=== PATIENT | female | born 1995 | race Caucasian/White ===

== ENCOUNTER → 2017-11-08 21:14 | Observation (INO) ==
[2017-11-08 19:47] VITALS: BP 106/62
[2017-11-08 19:51] LABS: Bilirubin,Urine Negative (Negative); Blood,Urine Negative (Negative); Clarity,Urine Cloudy (Clear); Color,Urine Yellow (Yellow); Glucose,Urine (UA) Normal (Normal); Ketones,Urine Negative (Negative); Leukocyte Esterase,Urine Small (Negative); Nitrite,Urine Negative (Negative); PH,Urine 6.5 pH Units (5.0-8.0); Protein,Urine Negative (Neg-Trace); Specific Gravity,Urine 1.019 (1.010-1.025); Urobilinogen,Urine Normal (Normal)
[2017-11-08 19:52] LABS: Bacteria,Urine Few per hpf (None-Few); Hyaline Casts,Urine None Seen per lpf (None-Few); RBC,Urine 0-3 per hpf (0-3); Squamous Epithelial Cell,Urine Many per lpf (None-Few)
--- NOTE | 2017-11-08 20:07 | OB/GYN Progress Note ---
Date of Encounter: 11/08/17 Time of Encounter: 20:02 - Assessment and Plan (1) Uterine contractions during Current Visit: Yes Status: Acute NST - reactive Urinalysis - negative UDS - Negative No change with serial cervical exams. Discussed increased water intake, intercourse and increased contractions, pancho benavides contractions that increase with each , common discomforts of . Follow up in office with routine care and PRN. (2) 31 weeks gestation of Current Visit: Yes Status: Acute Subjective - Subjective Principal diagnosis: irregular contractions Interval history: Ms Sorensen is a at 31 weeks and 1 days gestation that arrives to labor and delivery triage with c/o irregular contractions with back pain, and loss of mucous plug one week ago. She states that she has had intercourse in the past 24 hours. She also states that she does not drink much water. She c/o muscle cramps in her legs and bottom daily. She denies any headaches, vision changes, epigastric pain, leaking of fluid, vaginal discharge, and vaginal bleeding. She states she delivered at 37 weeks with her last and also had to have medication once in her previous to stop labor. Antepartum ROS: movement normal, contractions, no loss of fluid, no vaginal bleeding Objective - Vital Signs Vital Signs: Vital Signs Pulse Resp BP 11/08/17 19:46 84 15 106/62 Intake and Output 11/08/17 11/08/17 11/08/17 07:59 15:59 23:59 Other: Weight 81 kg Patient Weight 11/08/17 23:59 Weight 81 kg - Exam FHR: auscultation normal, category 1 FHR comments: 140's with moderate variability and 15 x 15 accels and no decels. uterine irritability noted on monitor; uterus palpates soft. Auscultation: bilateral: normal Abdomen: Present: normal appearance, soft, gravid. Absent: rigidity, tenderness Uterus: Present: normal, firm Cervical dilation: 1 Cervix effacement: Thick station: Presenting part not palpable
[2017-11-08 20:08] LABS: Amphetamine Screen,Urine Negative ng/mL (Cutoff=1000); Barbiturate Screen,Urine Negative ng/mL (Cutoff=200); Benzodiazepines Screen,Urine Negative ng/mL (Cutoff=200); Cannabinoid Screen,Urine Negative ng/mL (Cutoff = 50); Cocaine Screen,Urine Negative ng/mL (Cutoff= 300); Opiate Screen,Urine Negative ng/mL (Cutoff=300); Phencyclidine Screen,Urine Negative ng/mL (Cutoff=25)
== END | disposition home or self-care (01) ==
LOC: 1NENULAB
PROVIDERS: ADMIT Advanced Practice Midwife; ATTEND Advanced Practice Midwife

== ENCOUNTER 2017-11-21 20:28 | Observation (INO) ==
[2017-11-21 21:06] LABS: Bilirubin,Urine Negative (Negative); Blood,Urine Negative (Negative); Clarity,Urine Cloudy (Clear); Color,Urine Yellow (Yellow); Glucose,Urine (UA) Normal (Normal); Ketones,Urine Trace mg/dL (Negative); Leukocyte Esterase,Urine Moderate (Negative); Nitrite,Urine Negative (Negative); Protein,Urine Negative (Neg-Trace); Specific Gravity,Urine 1.019 (1.010-1.025); Urobilinogen,Urine Normal (Normal)
[2017-11-21 21:09] LABS: Bacteria,Urine Moderate per hpf (None-Few); Hyaline Casts,Urine None Seen per lpf (None-Few); RBC,Urine 0-3 per hpf (0-3); Squamous Epithelial Cell,Urine Many per lpf (None-Few); WBC,Urine 30-50 per hpf (0-3)
[2017-11-21 21:13] LABS: Amphetamine Screen,Urine Negative ng/mL (Cutoff=1000); Barbiturate Screen,Urine Negative ng/mL (Cutoff=200); Benzodiazepines Screen,Urine Negative ng/mL (Cutoff=200); Cannabinoid Screen,Urine Negative ng/mL (Cutoff = 50); Cocaine Screen,Urine Negative ng/mL (Cutoff= 300); Opiate Screen,Urine Negative ng/mL (Cutoff=300); Phencyclidine Screen,Urine Negative ng/mL (Cutoff=25)
--- NOTE | 2017-11-26 11:41 | OB/GYN Progress Note ---
Date of Encounter: 11/21/17 Time of Encounter: 21:30 - Assessment and Plan (1) Back pain affecting in third trimester Status: Acute No contractions on toco. Pt with lower back pain. No CVAT per RN. Discharge home with precautions. (2) 33 weeks gestation of Status: Acute Subjective - Subjective Interval history: 22 year-old presenting at 33 weeks with c/o some lower back pain. She reports she thinks she may be getting sick with a virus or something but wants to be sure she isn't having contractions. She was seen and evaluated by medical staff specialist. Antepartum ROS: movement normal, no loss of fluid, no vaginal bleeding Objective - Exam FHR: category 1 FHR comments: NST reactive per RN Comments: Pt not having contractions on toco per RN - Labs Labs: Abnormal lab results Urine Clarity Cloudy (Clear) A 11/21/17 20:57 Urine Ketones Trace mg/dL (Negative) H 11/21/17 20:57 Ur Leukocyte Esterase Moderate (Negative) H 11/21/17 20:57 Urine Microscopic WBC 30-50 per hpf (0-3) H 11/21/17 20:57 Ur Squamous Epith Cells Many per lpf (None-Few) H 11/21/17 20:57 Urine Bacteria Moderate per hpf (None-Few) H 11/21/17 20:57
== END 2017-11-21 22:08 | disposition home or self-care (01) ==
LOC: 1NENULAB
PROVIDERS: ADMIT Obstetrics & Gynecology; ATTEND Obstetrics & Gynecology

== ENCOUNTER 2017-11-24 18:24 | Observation (INO) ==
[2017-11-24 19:15] LABS: Basophils % 0.4 %; Hematocrit 34.1 % (35.3-44.9); Immature Granulocytes % 1.2 % (0-4); Lymphocytes # 1.4 K/mcL (0.6-4.6); Lymphocytes % 12.9 %; Mean Corpuscular HGB Conc 35.2 g/dL (31.6-35.5); Mean Corpuscular Hemoglobin 29.8 pg (28.0-33.3); Mean Corpuscular Volume 84.6 fL (83.0-100.0); Mean Platelet Volume 10.2 fL (9.4-12.4); Monocytes # 0.7 K/mcL (0.0-1.3); Monocytes % 6.2 %; Neutrophils # 8.5 K/mcL (1.6-8.9); Nucleated Red Blood Cells 0.2 /100 WBC (0); Platelet Count 196 K/mcL (140-400); Red Blood Count 4.03 M/mcL (3.82-4.97); Red Cell Distribution Width 13.6 % (11.5-14.5); Segmented Neutrophils % 79.3 %
[2017-11-24 19:35] LABS: BUN/Creatinine Ratio 5 (6-26); Blood Urea Nitrogen 3 mg/dL (6-20); Calcium 8.1 mg/dL (8.6-10.3); Carbon Dioxide 21 mEq/L (23-29); Chloride 104 mEq/L (98-107); Glucose 85 mg/dL (70-105); Osmolality,Calculated 278 (280-300); Potassium 2.4 mEq/L (3.5-5.1); Sodium 136 mEq/L (136-145); eGFR For African Americans > 60 (> 60); eGFR For Non-African Americans > 60 (> 60)
[2017-11-24] MEDS ORDERED: Ondansetron 4 MG/2 ML VIAL IVP ONE (20:22)
[2017-11-24] MEDS ORDERED: 0.9 % Sodium Chloride 1,000 ML IVC ONE (20:22)
--- NOTE | 2017-11-24 20:33 | Emergency Department Note ---
Disposition Clinical Impression: Hypokalemia, Influenza UTI (urinary tract infection) Qualifiers: Urinary tract infection type: site unspecified Hematuria presence: without hematuria Qualified Code(s): N39.0 - Urinary tract infection, site not specified Qualifiers: Weeks of gestation: 33 weeks Qualified Code(s): Z3A.33 - 33 weeks gestation of Intractable nausea and vomiting Qualifiers: Vomiting type: unspecified Qualified Code(s): R11.2 - Nausea with vomiting, unspecified Disposition: Admitted As Inpatient Condition: Fair Time of Disposition: 22:06 Nausea/Vomiting/Diarrhea HPI - General Chief complaint: ED Nausea/Vomiting/Diarrhea Stated complaint: preg/needs fluids? Time Seen by Provider: 11/24/17 20:07 Source: patient Mode of arrival: ambulatory Limitations: no limitations Nursing Notes Reviewed: Yes Vital Signs Reviewed: Yes - History of Present Illness HPI Narrative: 22-year-old female at approximately 33 weeks present for evaluation of vomiting. Patient have a positive influenza swab obtained in the past couple days. Patient's been on Tamiflu. Patient is not having subjective fevers as well as URI symptoms. Patient states that she has been having an upset stomach and has had approximately 7 episodes of emesis earlier today. Not able to tolerate by mouth. Patient also noted some mild abdominal cramping. Denies any vaginal bleeding. Patient denying any chest pain or short of breath. Patient's denying any history of common locations with current . Does follow with [facility]. - Related Data Home Medications Medication Instructions Recorded Confirmed Ondansetron HCl [Zofran] 4 mg PO Q12H PRN 11/24/17 11/24/17 Oseltamivir [Tamiflu] 75 mg PO BID 11/24/17 11/24/17 Previous Rx's Medication Instructions Recorded Vit Calc,Iron,Folic 1 each PO DAILY #30 tablet 03/06/16 [ Vitamins] Allergies Allergy/AdvReac Type Severity Reaction Status Date / Time No Known Allergies Allergy Verified 11/21/17 20:56 All systems ED: reviewed and negative except as stated. Constitutional: Reports: as per HPI, fever Eyes: Reports: as per HPI ENT ED: Reports: as per HPI Cardiovascular: Reports: as per HPI Respiratory: Reports: as per HPI, cough. Denies: dyspnea Gastrointestinal: Reports: as per HPI, abdominal pain, nausea, vomiting Genitourinary: Reports: as per HPI Integumentary: Reports: as per HPI Neurological: Reports: as per HPI Psychiatric: Reports: as per HPI Endocrine: Reports: as per HPI Hematological/Lymphatic: Reports: as per HPI Allergic/Immunologic: Reports: as per HPI Past Medical History - Past Medical History Medical history: Reports: seizures Surgical history: Reports: no surgical history Psychiatric history: Reports: no psych history [facility] history: Reports: no [facility] history - Social History Smoking Status: Former smoker Smokeless Tobacco Status: No Alcohol use: Reports: none Drug use: Reports: none Physical Exam - General Limitations: no limitations General appearance: alert, in no apparent distress - Head Head exam: atraumatic, normocephalic, normal inspection - Eye Eye exam: Present: normal appearance, PERRL, EOMI - ENT ENT exam: normal exam, normal oropharynx, mucous membranes moist - Neck Neck exam: Present: normal inspection, trachea midline - Chest Chest inspection: Present: normal inspection, symmetric chest wall rise - Respiratory Respiratory exam: Present: normal lung sounds bilaterally. Absent: respiratory distress - Cardiovascular Cardiovascular exam: Present: regular rate - Abdominal Exam Abdominal exam: Present: soft, Non-Tender, other (Gravid uterus above the umbilicus). Absent: guarding, rebound - Extremities Exam Extremities exam: Present: normal inspection. Absent: pedal edema - Back Exam Back exam: Present: normal inspection, full ROM. Absent: tenderness - Neurological Exam Neurological exam: Present: alert, oriented X3 - Skin Skin exam: Present: warm, dry, intact, normal color Course Course Narrative: Patient seen and examined. Patient does have positive flu diagnosed 2 days prior. On Tamiflu. Patient had basic labs obtained from triage shows hypokalemia. She will get IV fluid hydration as well as intradural and parenteral replacement of potassium. Patient also get magnesium evaluated. Symptomatically with Zofran. Patient had a bedside OB ultrasound which showed good movement. - Consultations Consultation #1: Spoke with on-call OB who states that they did have cardiac monitoring on their floor. Stated they would be willing to consult if the hospitalist would be willing to accept the patient. Time: 21:28 Consultation #2: Hospitalist now states that they do not feel comfortable admitting the patient even our OB agreed to see the patient in consult. Time: 22:25 Vital Signs Temperature 98.9 F 11/24/17 18:30 Pulse Rate 106 11/24/17 18:30 Respiratory Rate 18 11/24/17 18:30 Blood Pressure 107/64 11/24/17 18:30 O2 Sat by Pulse Oximetry 97 11/24/17 18:30 Temperature 97.6 F 11/25/17 06:45 Pulse Rate 87 11/25/17 06:45 Respiratory Rate 18 11/25/17 06:45 Blood Pressure 91/57 11/25/17 06:45 O2 Sat by Pulse Oximetry 96 11/25/17 06:45 Oxygen Delivery Oxygen Delivery Room Air Nausea/Vomiting/Diarrhea - MDM Narrative Medical decision making narrative: 22-year-old female who is 33 weeks cessation presents for evaluation of vomiting. Patient does have a positive flu swab obtained for the past couple days. Age and symptoms are likely reactive upper respiratory viral. Patient did have some abdominal cramping. During the patient's evaluation she was found to be hypokalemic with a potassium of 2.4. She was repleted with oral as well as central potassium. Patient was also found to be hypomagnesemic and repleted. Patient was given IV fluid hydration. Patient was treated symptomatically. Patient had a bedside ultrasound performed which showed gross movement. Discussed the case with OB who states that they cannot monitor the patient on telemetry in the department while she is receiving her potassium. Recommended hospitalist admission and OB consult. Hospitalist initially refused the patient given her . The charge nurse in cooperation with the [facility] as well as hospitalist eventually arranged for the patient to be admitted to the hospitalist service. Patient's symptoms likely related to her recent diagnosis of influenza. Low concern or suspicion of OB complication. Given the fact the patient is and has electrode abnormalities the patient would benefit from admission to ensure that the electrolytes were corrected. Patient's antiemetics were Zofran and appeared to improve her symptoms. Patient was also found to have a urinary tract infection and was given Rocephin. - Lab Data Lab results reviewed: Yes I reviewed the patient's lab results. Result diagrams: 11/25/17 05:15 11/25/17 05:15 Lab Results 11/24/17 11/24/17 11/24/17 Range/Units 19:01 19:01 20:45 WBC 10.8 (4.3-11.1) K/mcL RBC 4.03 (3.82-4.97) M/mcL Hgb 12.0 (11.5-15.4) g/dL Hct 34.1 L (35.3-44.9) % MCV 84.6 (83.0-100.0) fL MCH 29.8 (28.0-33.3) pg MCHC 35.2 (31.6-35.5) g/dL RDW 13.6 (11.5-14.5) % Plt Count 196 (140-400) K/mcL MPV 10.2 (9.4-12.4) fL Immature Gran % 1.2 (0-4) % Seg Neutrophils % 79.3 % Lymphocytes % 12.9 % Monocytes % 6.2 % Eosinophils % 0.0 % Basophils % 0.4 % Neutrophils # 8.5 (1.6-8.9) K/mcL Lymphocytes # 1.4 (0.6-4.6) K/mcL Monocytes # 0.7 (0.0-1.3) K/mcL Eosinophils # 0.0 (0.0-0.6) K/mcL Basophils # 0.0 (0.0-0.2) K/mcL Nucleated RBCs/100 WBC 0.2 H (0) /100 WBC Sodium 136 (136-145) mEq/L Potassium 2.4 L* (3.5-5.1) mEq/L Chloride 104 (98-107) mEq/L Carbon Dioxide 21 L (23-29) mEq/L BUN 3 L (6-20) mg/dL Creatinine 0.55 L (0.60-1.20) mg/dL Est GFR ( Amer) > 60 (> 60) Est GFR (Non-Af Amer) > 60 (> 60) BUN/Creatinine Ratio 5 L (6-26) Glucose 85 (70-105) mg/dL Calculated Osmolality 278 L (280-300) Calcium 8.1 L (8.6-10.3) mg/dL Magnesium 1.5 L (1.6-2.6) mg/dL Urine Color Dark Yellow (Yellow) Urine Clarity Cloudy A (Clear) Urine pH 6.5 (5.0-8.0) pH Units Ur Specific [place] 1.011 (1.010-1.025) Urine Protein 30 H (Neg-Trace) mg/dL Urine Glucose (UA) Normal (Normal) mg/dL Urine Ketones 80 H (Negative) mg/dL Urine Blood Negative (Negative) Urine Nitrite Negative (Negative) Urine Bilirubin Small H (Negative) Urine Urobilinogen Normal (Normal) mg/dL Ur Leukocyte Esterase Moderate H (Negative) Urine Microscopic RBC 5-15 H (0-3) per hpf Urine Microscopic WBC 50-100 H (0-3) per hpf Ur Squamous Epith Cells Many H (None-Few) per lpf Urine Bacteria Moderate H (None-Few) per hpf Hyaline Casts Few (None-Few) per lpf Ur Culture Indicated? NO. (NO) 11/25/17 Range/Units 00:29 WBC (4.3-11.1) K/mcL RBC (3.82-4.97) M/mcL Hgb (11.5-15.4) g/dL Hct (35.3-44.9) % MCV (83.0-100.0) fL MCH (28.0-33.3) pg MCHC (31.6-35.5) g/dL RDW (11.5-14.5) % Plt Count (140-400) K/mcL MPV (9.4-12.4) fL Immature Gran % (0-4) % Seg Neutrophils % % Lymphocytes % % Monocytes % % Eosinophils % % Basophils % % Neutrophils # (1.6-8.9) K/mcL Lymphocytes # (0.6-4.6) K/mcL Monocytes # (0.0-1.3) K/mcL Eosinophils # (0.0-0.6) K/mcL Basophils # (0.0-0.2) K/mcL Nucleated RBCs/100 WBC (0) /100 WBC Sodium (136-145) mEq/L Potassium 2.8 L (3.5-5.1) mEq/L Chloride (98-107) mEq/L Carbon Dioxide (23-29) mEq/L BUN (6-20) mg/dL Creatinine (0.60-1.20) mg/dL Est GFR ( Amer) (> 60) Est GFR (Non-Af Amer) (> 60) BUN/Creatinine Ratio (6-26) Glucose (70-105) mg/dL Calculated Osmolality (280-300) Calcium (8.6-10.3) mg/dL Magnesium (1.6-2.6) mg/dL Urine Color (Yellow) Urine Clarity (Clear) Urine pH (5.0-8.0) pH Units Ur Specific [place] (1.010-1.025) Urine Protein (Neg-Trace) mg/dL Urine Glucose (UA) (Normal) mg/dL Urine Ketones (Negative) mg/dL Urine Blood (Negative) Urine Nitrite (Negative) Urine Bilirubin (Negative) Urine Urobilinogen (Normal) mg/dL Ur Leukocyte Esterase (Negative) Urine Microscopic RBC (0-3) per hpf Urine Microscopic WBC (0-3) per hpf Ur Squamous Epith Cells (None-Few) per lpf Urine Bacteria (None-Few) per hpf Hyaline Casts (None-Few) per lpf Ur Culture Indicated? (NO) - Radiology Data Radiology results reviewed: Yes I reviewed the patient's radiology results. - EKG Data EKG attestation: Yes I reviewed and interpreted this EKG. EKG shows normal: sinus rhythm Rate: normal Rhythm: NSR [place]/QRS: normal T wave inversions noted in: III, v1 Interpretation: no acute changes Critical Care Time Critical Care Time: Yes Total Critical Care Time: 40 Attestation: Critical care performed: Time is exclusive of separately billable procedures. Time includes: direct patient care, patient reassessment, coordination of patient care, interpretation of data (laboratory data, radiology data, and respiratory data), review of patient's medical records, medical consultation and documentation of patient care. Procedures included in critical care time: Procedures excluded from critical care time: S.Dany.Fl[place] - S.Dany.A.Catracho Situation: Demographics Background: Presenting Complaint Assessment: Vital Signs, Course and respsone to treatment, Patient/Family Expectation Recommendation: Barrier(s) to disposition, Recommendation based on pending studies, treatments, or consults S.B.A.Catracho Report Given to: Dr. Huey Murcia Repor Time: 22:06 Attestation Statement - Attestation Attestation: I, Mikey Gaytan MD, personally evaluated this patient and discussed their management with the resident physician. I reviewed the resident's note and agree with the documented findings, medical decision making, and plan of care. 22-year-old female who is approximately 33 weeks presents to the emergency department with a complaint of flu symptoms for 2 days. She was diagnosed with the flu yesterday. She complains of nausea and vomiting and unable keep anything down. No lower abdominal pain. No vaginal bleeding or discharge. No urinary symptoms. No GI bleed symptoms. She has had some cough and congestion runny nose with chills and fever. Patient's primary concern is that she is getting dehydrated from vomiting and not keeping anything down. On examination patient is a well-developed well-nourished well-appearing young female in no acute distress. She is alert and oriented 3. There is no cyanosis or diaphoresis. Neck is supple and nontender with no lymphadenopathy. Chest is nontender to palpation. Breath sounds are clear and equal bilaterally. Heart regular with a mild tachycardia. Abdomen soft and nontender with normal bowel sounds. Labs reviewed. Potassium 2.4. Patient received IV and oral potassium replacement along with IV magnesium. OB/ [facility] was consulted and they are unable to admit the patient because patient needs to be on cardiac monitoring while receiving the IV potassium and they do not have monitoring available on their unit. They are agreeable to consult tingling on the patient with the hospitalist. The hospitalist was consulted and refused to accept the patient because she is more than 30 weeks . After extended discussions with the datawarehouse developer in bed management and documented improvement in patient's potassium level she was finally accepted for admission by Dr. Arzate to the hospitalist service.
[2017-11-24 20:51] LABS: Magnesium 1.5 mg/dL (1.6-2.6)
[2017-11-24 20:59] LABS: Bilirubin,Urine Small (Negative); Blood,Urine Negative (Negative); Clarity,Urine Cloudy (Clear); Color,Urine Dark Yellow (Yellow); Glucose,Urine (UA) Normal (Normal); Ketones,Urine 80 mg/dL (Negative); Leukocyte Esterase,Urine Moderate (Negative); Nitrite,Urine Negative (Negative); PH,Urine 6.5 pH Units (5.0-8.0); Protein,Urine 30 mg/dL (Neg-Trace); Specific Gravity,Urine 1.011 (1.010-1.025); Urobilinogen,Urine Normal (Normal)
[2017-11-24 21:00] LABS: Bacteria,Urine Moderate per hpf (None-Few); Hyaline Casts,Urine Few per lpf (None-Few); Squamous Epithelial Cell,Urine Many per lpf (None-Few); WBC,Urine 50-100 per hpf (0-3)
[2017-11-24] MEDS ORDERED: cefTRIAXone 1,000 MG in Water for inj. (sterile) 20 ML 10 ML IVP ONE (21:28)
[2017-11-24] MEDS ORDERED: Potassium Chloride 30 MEQ, Lidocaine 1% 2 ML in D5% in Water 500 ML IVPB ONE (21:46)
[2017-11-25] MEDS ORDERED: Naloxone 0.4 MG/ML INJ IVP PRN (03:02)
--- NOTE | 2017-11-25 03:20 | Internal Med History&Physical ---
Date of Encounter: 11/25/17 Time of Encounter: 02:30 Assessment and Plan (1) DVT prophylaxis Current visit: Yes Status: Acute Pt denies hx or family hx of thrombus disease. She is young and ambulating well. Discussed with pt, she would like to ambulating during day time and we will place EPCD during night. (2) Hypokalemia Current visit: Yes Status: Acute Cont potassium supplement. F/U BMP in AM (3) Influenza Current visit: Yes Status: Acute Will cont Tamiflu to finish the 5 day course (4) Intractable nausea and vomiting Current visit: Yes Status: Acute Probably due to viral infection caused by Flu. Place pt on IVF, clear liquid diet, and benadryl 12.5 mg iv q6h prn for nausea. Closely monitor electrolytes levels. Qualifiers: Vomiting type: unspecified Qualified Code(s): R11.2 - Nausea with vomiting , unspecified (5) Current visit: Yes Status: Acute Will consult magnetometer operator. ER did bedside US and shows good movement. Qualifiers: Weeks of gestation: 33 weeks Qualified Code(s): Z3A.33 - 33 weeks gestation of (6) UTI (urinary tract infection) during Current visit: No Status: Acute Will cont rocephin 1000mg iv daily. F/U urine culture. Qualifiers: Trimester: third trimester Qualified Code(s): O23.43 - Unspecified infection of urinary tract in , third trimester Internal Medicine - H&P: HPI Chief complaint: nausea and vomiting Admitted From: Home Plans for Post Hospital Care: Home History of present illness: Ms. Sorensen is a 22 year old female with 33wks present to ER for nausea /vomiting for one day. Pt was seen by urgent care yesterday and was test Flu, which results positive. She started Tamiflu 75mg po bid and finished 2 doses. Pt still has nausea and vomiting 5-6 a day. Denies fever, denies runny nose. Has mild sore throat and mild nonproductive cough. Denies abd pain or diarrhea. Pt denies dysuria or urgency. Her potassium and magnessium level was found low to 2.4 in ER. She was also found UTI. She was given potassium and magnessium supplement in ER and was started rocephin for UTI. She was admitted for further management. Past Med Surg Social Fam HX - Past Medical History Medical history: seizures Psychiatric history: no psych history - Past Surgical History Surgical History: no surgical history - Social History Smoking Status: Former smoker Smokeless Tobacco Status: No Alcohol use: none Drug use: none - Family History Mother Living Status: Still Living Hx Family Cardiac Disorders: No Hx Family Respiratory Disorders: No Hx Family Cancer: No Hx Family GI Disorders: No Hx Family Endocrine Disorder: No Hx Family Neuromuscular Disorders: No Hx Family Neurologic Disorders: No Hx Family HEENT Disorders: No Hx Family Autoimmune Disorders: No Internal Medicine - H&P: Meds Vit Calc,Iron,Folic [ Vitamins] 1 each PO DAILY #30 tablet [Rx] Ondansetron HCl [Zofran] 4 mg PO Q12H PRN 11/24/17 [History] Oseltamivir [Tamiflu] 75 mg PO BID 11/24/17 [History] 3 Allergy/AdvReac Type Severity Reaction Status Date / Time No Known Allergies Allergy Verified 11/21/17 20:56 All Systems PM: A 10-system review of systems was performed and is negative for pertinent findings except as documented above in the HPI. - Constitutional Vitals: Temp Pulse Resp BP Pulse Ox 97.8 F 87 17 87/44 97 11/25/17 02:51 11/25/17 02:51 11/25/17 02:51 11/25/17 02:51 11/25/17 02:51 General appearance: Present: A&O X 3, no acute distress, answers questions appropriately - Head Head exam: Present: atraumatic, normocephalic - Eye Eye exam: Present: PERRL, conjuntiva pink, sclera anicteric Pupils: Present: PERRL - ENT Additional comments: No tonsil enlargement or pharyngeal erythema. - Neck Neck exam general surgery: Present: supple, trachea midline. Absent: lymphadenopathy - Respiratory Respiratory exam: Present: CTAB. Absent: accessory muscle use, rales, rhonchi, wheezes - Cardiovascular Cardiovascular exam: Present: RRR, +S1, +S2. Absent: diastolic murmur, gallop, rubs, systolic murmur - GI/Abdominal GI/Abdominal exam: Present: distended (Distended abd c/w 33 wk ), normal bowel sounds, soft, no peritoneal signs. Absent: tenderness - Extremities Exam Extremities exam: Present: warm, radial pulses palpable and symmetrical. Absent : calf tenderness, cyanotic, pedal edema - Neurological Exam Neurological exam: Present: CN II-XII intact, oriented X3, no focal deficits. Absent: pronater drift, facial droop, speech deficit - Skin Skin exam: Present: dry, intact Internal Med - H&P Results - Labs CBC & Chem 7: 11/24/17 19:01 11/25/17 00:29
[2017-11-25] MEDS: 0.9 % Sodium Chloride 1,000 ML IVC SCH ×2 (04:05→21:28)
[2017-11-25 05:48] LABS: Basophils % 0.2 %; Hematocrit 33.3 % (35.3-44.9); Hemoglobin 11.4 g/dL (11.5-15.4); Immature Granulocytes % 1.1 % (0-4); Lymphocytes # 1.8 K/mcL (0.6-4.6); Lymphocytes % 21.8 %; Mean Corpuscular HGB Conc 34.2 g/dL (31.6-35.5); Mean Corpuscular Hemoglobin 29.5 pg (28.0-33.3); Mean Platelet Volume 10.5 fL (9.4-12.4); Monocytes # 0.5 K/mcL (0.0-1.3); Monocytes % 6.4 %; Neutrophils # 5.7 K/mcL (1.6-8.9); Platelet Count 186 K/mcL (140-400); Red Blood Count 3.87 M/mcL (3.82-4.97); Red Cell Distribution Width 13.7 % (11.5-14.5); Segmented Neutrophils % 70.5 %
[2017-11-25 06:07] LABS: BUN/Creatinine Ratio 4 (6-26); Blood Urea Nitrogen 2 mg/dL (6-20); Calcium 7.8 mg/dL (8.6-10.3); Carbon Dioxide 20 mEq/L (23-29); Chloride 109 mEq/L (98-107); Glucose 81 mg/dL (70-105); Osmolality,Calculated 281 (280-300); Potassium 3.2 mEq/L (3.5-5.1); Sodium 138 mEq/L (136-145); eGFR For African Americans > 60 (> 60); eGFR For Non-African Americans > 60 (> 60)
--- NOTE | 2017-11-25 09:31 | Event Note ---
Date of Encounter: 11/25/17 Time of Encounter: 09:23 22 y/o female who is 33 weeks presented to ER with complaints of nausea , vomiting and general weakness/malaise. Seen at bedside; feels better today. No nausea or vomiting. Has not tried to eat today. 1. Influenza: dx at outpatient urgent care. Cont Tamiflu to finish the 5 day course 2. Hypokalemia: K 2.4 on arrival.secondary to nausea vomiting and poor by mouth intake. Cont potassium supplement. Repeat K 3.2, Mg 2.0. Monitor repeat BMP 3. Intractable nausea and vomiting:probably due to viral infection caused by Flu. Place pt on IVF, clear liquid diet, and benadryl 12.5 mg iv q6h prn for nausea. Closely monitor electrolytes levels. Symptoms improved on 11/25 4. : 33 weeks gestation. ER did bedside US and shows good movement. Ob consulted 5. UTI (urinary tract infection) during : cont rocephin 1000mg iv daily. F/U urine culture. 6. DVT prophylaxis: Pt denies hx or family hx of thrombus disease. She is young and ambulating well. Discussed with pt, she would like to ambulating during day time and we will place EPCD during night.
--- NOTE | 2017-11-25 10:59 | OB/GYN Consult Note ---
Date of Encounter: 11/25/17 Time of Encounter: 10:59 Assessment and Plan (1) 33 weeks gestation of Current Visit: Yes Status: Acute NST reactive. No concerns at this time. Will do twice daily NST's while inpatient. (2) DVT prophylaxis Current Visit: Yes Status: Acute (3) Hypokalemia Current Visit: Yes Status: Acute (4) Influenza Current Visit: Yes Status: Acute (5) Intractable nausea and vomiting Current Visit: Yes Status: Acute Qualifiers: Vomiting type: unspecified Qualified Code(s): R11.2 - Nausea with vomiting , unspecified (6) Decreased movement affecting management of mother, antepartum Current Visit: No Status: Acute Qualifiers: Fetus number: single or unspecified fetus Qualified Code(s): O36.8190 - Decreased movements, unspecified trimester, not applicable or unspecified History of Present Illness Consult date: 11/25/17 Requesting physician: Xiomara Arzate Reason for consult: other (33 weeks gestation of admitted with influenza and hypokalemia) Chief complaint: hypokalemia, flu History of present illness: 22 year old female at 33wks presented to ER for nausea/ vomiting for one day. Pt was seen by urgent care 11/23/17 and was found to be positive for influenza. She started Tamiflu 75mg po bid. Denies fever, denies runny nose. Has mild sore throat and mild nonproductive cough. Denies abd pain or diarrhea. Pt denies dysuria or urgency. Her potassium and magnessium level was found low to 2.4 in ER. She was also found UTI. She was given potassium and magnessium supplement in ER and was started rocephin for UTI. She was admitted for further management. Today she reports feeling a bit better. She has not vomited today. She also hasn't eaten. She denies LOF, VB, cramping, or contractions. She reports some movement this am but less than normal for her. Past Med Surg Social Fam HX - Past Medical History Medical history: seizures Psychiatric history: no psych history - Past Surgical History Surgical History: no surgical history - Social History Smoking Status: Former smoker Smokeless Tobacco Status: No Alcohol use: none Drug use: none - Family History Mother Living Status: Still Living Hx Family Cardiac Disorders: No Hx Family Respiratory Disorders: No Hx Family Cancer: No Hx Family GI Disorders: No Hx Family Endocrine Disorder: No Hx Family Neuromuscular Disorders: No Hx Family Neurologic Disorders: No Hx Family HEENT Disorders: No Hx Family Autoimmune Disorders: No Medications and Allergies Vit Calc,Iron,Folic [ Vitamins] 1 each PO DAILY #30 tablet [Rx] Ondansetron HCl [Zofran] 4 mg PO Q12H PRN 11/24/17 [History] Oseltamivir [Tamiflu] 75 mg PO BID 11/24/17 [History] 3 Allergy/AdvReac Type Severity Reaction Status Date / Time No Known Allergies Allergy Verified 11/21/17 20:56 Review of Systems Constitutional: no chills, no fever(s), no headache(s) Nose, mouth and throat: hoarseness (slight), nasal congestion, nasal discharge, sore throat Cardiovascular: no chest pain, no dyspnea Respiratory: cough, no dyspnea Gastrointestinal: no abdominal pain, no cramping Genitourinary Female: no vaginal discharge Exam - Vital Signs Vital signs: Initial Vital Signs Temp Pulse Resp BP Pulse Ox 98.9 F 106 18 107/64 97 11/24/17 18:30 11/24/17 18:30 11/24/17 18:30 11/24/17 18:30 11/24/17 18:30 - Constitutional Constitutional: well developed, well nourished, no acute distress - HEENT HEENT: Mucus Membranes Moist - Lungs Respiratory exam: CTAB - Cardiovascular Cardiovascular exam: RRR - Abdomen Abdomen: Present: gravid. Absent: non tender - Extremities Extremities exam: normal inspection - Comments Comments: NST reactive, baseline 125 BPM [place] with some uterine irritability, no contractions Results Result Diagrams: 11/25/17 05:15 11/25/17 05:15 Abnormal lab results Hgb 11.4 g/dL (11.5-15.4) L 11/25/17 05:15 Hct 33.3 % (35.3-44.9) L 11/25/17 05:15 Nucleated RBCs/100 WBC 0.2 /100 WBC (0) H 11/24/17 19:01 Potassium 3.2 mEq/L (3.5-5.1) L 11/25/17 05:15 Chloride 109 mEq/L (98-107) H 11/25/17 05:15 Carbon Dioxide 20 mEq/L (23-29) L 11/25/17 05:15 BUN 2 mg/dL (6-20) L 11/25/17 05:15 Creatinine 0.48 mg/dL (0.60-1.20) L 11/25/17 05:15 BUN/Creatinine Ratio 4 (6-26) L 11/25/17 05:15 Calcium 7.8 mg/dL (8.6-10.3) L 11/25/17 05:15 Urine Clarity Cloudy (Clear) A 11/24/17 20:45 Urine Protein 30 mg/dL (Neg-Trace) H 11/24/17 20:45 Urine Ketones 80 mg/dL (Negative) H 11/24/17 20:45 Urine Bilirubin Small (Negative) H 11/24/17 20:45 Ur Leukocyte Esterase Moderate (Negative) H 11/24/17 20:45 Urine Microscopic RBC 5-15 per hpf (0-3) H 11/24/17 20:45 Urine Microscopic WBC 50-100 per hpf (0-3) H 11/24/17 20:45 Ur Squamous Epith Cells Many per lpf (None-Few) H 11/24/17 20:45 Urine Bacteria Moderate per hpf (None-Few) H 11/24/17 20:45 All other labs normal. Consult Discharge Plan - Plan Referrals: NONE,PCP [Primary Care Provider] -
[2017-11-25] MEDS ORDERED: 0.9 % Sodium Chloride 1,000 ML IVC ONE (12:09)
--- NOTE | 2017-11-25 19:36 | Electrocardiograph Report ---
[address] [place] [address] Test Date: 2017-11-24 Pat Name: Magui Sorensen Department: 104 Room: [facility] Gender: F Campaign Management Specialist: : 1995 Requested By: Rashawn Wells Order Number: [id number] Reading MD: Deuce Apple MD Measurements Intervals [place] Rate: 96 P: 51 SD: 149 QRS: 44 QRSD: 96 T: 6 QT: 359 QTc: 413 Interpretive Statements SINUS RHYTHM Electronically Signed On 11-25-2017 19:34:37 EST by Deuce Apple MD
[2017-11-25] MEDS ORDERED: cefTRIAXone 1,000 MG in Water for inj. (sterile) 10 ML IVP SCH (21:00)
[2017-11-26 04:20] VITALS: BP 102/66
[2017-11-26 05:53] LABS: Blood Urea Nitrogen < 2 mg/dL (6-20); Calcium 7.8 mg/dL (8.6-10.3); Carbon Dioxide 20 mEq/L (23-29); Chloride 111 mEq/L (98-107); Glucose 89 mg/dL (70-105); Potassium 2.9 mEq/L (3.5-5.1); Sodium 137 mEq/L (136-145); eGFR For African Americans > 60 (> 60); eGFR For Non-African Americans > 60 (> 60)
--- NOTE | 2017-11-26 09:08 | Discharge Summary ---
Date of Encounter: 11/26/17 Time of Encounter: 09:00 - Discharge Diagnosis (1) UTI (urinary tract infection) during Priority: Primary Status: Acute Qualifiers: Trimester: third trimester Qualified Code(s): O23.43 - Unspecified infection of urinary tract in , third trimester (2) Third trimester Priority: Secondary Status: Acute - Discharge Medications Prescriptions: cephALEXin [Keflex] 500 mg PO BID #14 capsule Home Medications: Vit Calc,Iron,Folic [ Vitamins] 1 each PO DAILY #30 tablet [Rx] Ondansetron HCl [Zofran] 4 mg PO Q12H PRN 11/24/17 [History] Oseltamivir [Tamiflu] 75 mg PO BID 11/24/17 [History] cephALEXin [Keflex] 500 mg PO BID #14 capsule 11/26/17 [Rx] Allergies/Adverse Reactions: 3 Allergy/AdvReac Type Severity Reaction Status Date / Time No Known Allergies Allergy Verified 11/21/17 20:56 Date of admission: 11/25/17 01:38 Primary care physician: PCP NONE Consults: 11/25/17 03:07 Consult to BRICK KILN BURNER [CONS] Stat Consulting Provider: DRAWING CHECKER [place] Reason for Consult: 33 Wks . Informed by ER. Call Completed: Yes - Patient Status Disposition: Home, Self-Care Condition: Fair Overall status at discharge: patient is progressing back to baseline - Discharge Instructions Follow Up With: NONE,PCP [Primary Care Provider] - Additional Instructions: Follow-up appointments: If there is not an appointment listed below, please call your physician and schedule a follow-up appointment. If you have congestive heart failure and your symptoms return, make an appointment with your physician. Medication List: Carry an up to date list of medications you are taking at all time. We have given you an updated medication list including any new medications that you have been prescribed. Please provide that list to your primary provider Symptoms: If your condition changes or you experience any of the following symptoms, notify your physician immediately: Unusual or worsening pain, fever, persistent nausea and vomiting, bleeding, increase in swelling (especially in your legs), sudden weight gain, extreme dizziness, chest pain, increased drainage or redness from a wound or incision. Go to the emergency department if you experience a problem with breathing. Weights: If you have a history of swelling or shortness of breath, weigh yourself daily and notify your physician if you have a weight gain of two or more pounds in one day or 5 or more pounds in a week. If you experience any of the warning signs for stroke: Sudden numbness or weakness of the face, arm or leg; especially on one side of the body, sudden confusion, trouble speaking or understanding, sudden trouble seeing in one or both eyes, sudden trouble walking, dizziness, loss of balance or coordination, sudden sever headache with no cause; Call 911 or go to the emergency room. Stroke is a medical emergency. Some risk factors for stroke: Age, cigarette smoking, diabetes, excessive alcohol consumption, family history , high blood pressure, overweight, physical inactivity, prior stroke, heart attack, diagnosis of carotid artery stenosis or other artery disease. If you smoke, STOP: Smoking or tobacco use significantly increases your risk of heart and lung disease. Your chance of disease greatly increases if you continue to smoke. For more information, call the [employer] tobacco quit line for smoking cessation - ( ) Hospital course: Ms. Sorensen is a 22 year old female with 33wks presented to ER for nausea/vomiting for one day. Pt was seen by urgent care the day prior and tested positive for the flu. She was started on Tamiflu. She continued to have nausea and vomiting presented to the emergency department where she was found hypokalemic and hypomagnesemic. She also had UTI. She was admitted to the hospitalist service with a consult to DRAWING CHECKER. Eventually her cultures remained negative. She was discharged on Keflex which was okay per DRAWING CHECKER. She was also advised to continue Tamiflu for 2 more days to finish 5 days total. - Time Spent with Patient Total time spent providing and/or coordinating discharge services: Greater than 30 minutes - Constitutional Vitals: Temp Pulse Resp BP Pulse Ox 98.1 F 75 16 102/66 100 11/26/17 04:20 11/26/17 04:20 11/26/17 04:20 11/26/17 04:20 11/26/17 04:20 General appearance: Present: A&O X 3, no acute distress, answers questions appropriately - VTE Documentation of Mechanical Device: Intermittent pneumatic compression device
--- NOTE | 2017-11-26 11:29 | OB/GYN Progress Note ---
Date of Encounter: 11/26/17 Time of Encounter: 11:27 - Assessment and Plan (1) 33 weeks gestation of Current Visit: Yes Status: Acute NST reactive. Pt ok for discharge home when released by primary team. She has follow-up scheduled for 12/01/17 and I have written for her to be off work until then. precautions reviewed with pt. (2) DVT prophylaxis Current Visit: Yes Status: Acute (3) Hypokalemia Current Visit: Yes Status: Acute (4) Influenza Current Visit: Yes Status: Acute (5) Intractable nausea and vomiting Current Visit: Yes Status: Acute Qualifiers: Vomiting type: unspecified Qualified Code(s): R11.2 - Nausea with vomiting , unspecified (6) Decreased movement affecting management of mother, antepartum Current Visit: No Status: Acute Qualifiers: Fetus number: single or unspecified fetus Qualified Code(s): O36.8190 - Decreased movements, unspecified trimester, not applicable or unspecified Subjective - Subjective Interval history: Pt reports feeling better today. She is still coughing but no more nausea, vomiting, or fevers. Good FM. No contractions, leaking, or bleeding. She has a routine appointment this . She is asking when she should return to work. Antepartum ROS: movement normal, no loss of fluid, no vaginal bleeding, no contractions Objective - Vital Signs Vital Signs: Vital Signs Temp Pulse Resp BP Pulse Ox 11/26/17 04:20 98.1 F 75 16 102/66 100 11/26/17 00:22 95/56 11/26/17 00:00 98.0 F 76 14 92/59 98 11/25/17 21:31 67 103/70 11/25/17 19:54 98.0 F 82 18 93/60 99 11/25/17 14:32 97.6 F 85 18 98/62 100 Intake and Output 11/25/17 11/26/17 11/26/17 23:59 07:59 15:59 Intake Total 1650 / 1650 1600 / 1600 Balance 1650 / 1650 1600 / 1600 Intake: IV Fluids 650 / 650 1000 / 1000 0.9 % Sodium Chloride 1,000 ML 640 / 640 @ 100 mls/hr IVC .Q10H [facility] Rx#: [id number] Rocephin 1,000 MG In Water for inj. (sterile) 10 ML @ 300 mls/ hr IVP HS [facility] Rx#:[id number] Oral 1000 / 1000 600 / 600 Other: Meal Dinner Breakfast Percent of Meal Consumed 60% 80% # Voids 1 1 - Exam FHR: category 1 FHR comments: NST 125 BPM and reactive this am. NST tracing reviewed by Dr. Easton. Auscultation: bilateral: normal Abdomen: Present: soft, gravid. Absent: tenderness Uterus: Absent: tenderness - Labs Labs: Abnormal lab results Hgb 11.4 g/dL (11.5-15.4) L 11/25/17 05:15 Hct 33.3 % (35.3-44.9) L 11/25/17 05:15 Nucleated RBCs/100 WBC 0.2 /100 WBC (0) H 11/24/17 19:01 Potassium 2.9 mEq/L (3.5-5.1) L 11/26/17 05:02 Chloride 111 mEq/L (98-107) H 11/26/17 05:02 Carbon Dioxide 20 mEq/L (23-29) L 11/26/17 05:02 BUN < 2 mg/dL (6-20) L 11/26/17 05:02 Creatinine 0.40 mg/dL (0.60-1.20) L 11/26/17 05:02 Calcium 7.8 mg/dL (8.6-10.3) L 11/26/17 05:02 Urine Clarity Cloudy (Clear) A 11/24/17 20:45 Urine Protein 30 mg/dL (Neg-Trace) H 11/24/17 20:45 Urine Ketones 80 mg/dL (Negative) H 11/24/17 20:45 Urine Bilirubin Small (Negative) H 11/24/17 20:45 Ur Leukocyte Esterase Moderate (Negative) H 11/24/17 20:45 Urine Microscopic RBC 5-15 per hpf (0-3) H 11/24/17 20:45 Urine Microscopic WBC 50-100 per hpf (0-3) H 11/24/17 20:45 Ur Squamous Epith Cells Many per lpf (None-Few) H 11/24/17 20:45 Urine Bacteria Moderate per hpf (None-Few) H 11/24/17 20:45
== END 2017-11-26 13:00 | disposition home or self-care (01) ==
LOC: 3NENU 18:24 → EMEROO 18:24 → 3NENU 11-25 01:58
PROVIDERS: ADMIT Internal Medicine; ATTEND Student in an Organized Health Care Education/Training Program

== ENCOUNTER 2017-12-26 21:34 | Observation (INO) ==
[2017-12-26 21:55] VITALS: BP 125/67
--- NOTE | 2017-12-26 22:03 | OB/GYN Progress Note ---
Date of Encounter: 12/26/17 Time of Encounter: 22:01 - Assessment and Plan (1) 38 weeks gestation of Current Visit: Yes Status: Acute Continuous monitoring (2) Vaginal discharge during in third trimester Current Visit: Yes Status: Acute Nitrazine negative SSE completed, no fluid visualized in vaginal vault. FERN negative. (3) NST (non-stress test) reactive Current Visit: Yes Status: Acute 135 bpm, +15x15 accels, moderate variability, no decels. Subjective - Subjective Principal diagnosis: R/O ROM Interval history: Magui arrives [facility] with complaint of possible ROM this evening at 1950, clear fluid with some "white chunkies." Patient reports positive movement and denies bleeding and painful contractions. Antepartum ROS: loss of fluid, movement normal, no vaginal bleeding, no contractions Objective - Vital Signs Vital Signs: Vital Signs Temp Pulse Resp BP 12/26/17 21:44 98.5 F 82 16 125/67 Intake and Output 12/26/17 12/26/17 12/26/17 07:59 15:59 23:59 Other: Weight 83.2 kg Patient Weight 12/26/17 23:59 Weight 83.2 kg - Exam FHR: category 1 FHR comments: 135 bpm, moderate variability, +15x15 accels, no decels. Auscultation: bilateral: normal Abdomen: Present: normal appearance, soft, gravid Uterus: Present: normal Cervical dilation: 4 Cervix effacement: 50 station: -2 Comments: JOHNNIE Cornell
[2017-12-26 22:16] LABS: Amphetamine Screen,Urine Negative ng/mL (Cutoff=1000); Barbiturate Screen,Urine Negative ng/mL (Cutoff=200); Benzodiazepines Screen,Urine Negative ng/mL (Cutoff=200); Cannabinoid Screen,Urine Negative ng/mL (Cutoff = 50); Cocaine Screen,Urine Negative ng/mL (Cutoff= 300); Opiate Screen,Urine Negative ng/mL (Cutoff=300); Phencyclidine Screen,Urine Negative ng/mL (Cutoff=25)
--- NOTE | 2017-12-26 23:00 | Discharge Summary ---
Date of Encounter: 12/26/17 Time of Encounter: 22:59 - Discharge Diagnosis (1) 38 weeks gestation of Priority: Primary Status: Acute Comments: Continuous monitoring No cervical change during stay (2) Vaginal discharge during in third trimester Priority: Secondary Status: Acute Comments: FERN and nitrazine negative (3) NST (non-stress test) reactive Priority: Secondary Status: Acute Comments: 135 bpm, moderate variability, +15x15 accels, no decels - Discharge Medications Home Medications: Vit Calc,Iron,Folic [ Vitamins] 1 each PO DAILY #30 tablet [Rx] Ondansetron HCl [Zofran] 4 mg PO Q12H PRN 11/24/17 [History] Oseltamivir [Tamiflu] 75 mg PO BID 11/24/17 [History] cephALEXin [Keflex] 500 mg PO BID #14 capsule 11/26/17 [Rx] Allergies/Adverse Reactions: 3 Allergy/AdvReac Type Severity Reaction Status Date / Time No Known Allergies Allergy Verified 11/21/17 20:56 Data Procedures and tests throughout hospitalization: Laboratory Tests 12/26/17 21:54 Urine Opiates Screen Negative Ur Barbiturates Screen Negative Ur Phencyclidine Scrn Negative Ur Amphetamines Screen Negative U Benzodiazepines Scrn Negative Urine Cocaine Screen Negative U Marijuana (THC) Screen Negative Labs on day of discharge: Labs from last 24 hours 12/26/17 21:54 Urine Opiates Screen Negative Ur Barbiturates Screen Negative Ur Phencyclidine Scrn Negative Ur Amphetamines Screen Negative U Benzodiazepines Scrn Negative Urine Cocaine Screen Negative U Marijuana (THC) Screen Negative Date of admission: 12/26/17 21:34 Discharging clinician: Mercedes Kelly Anticipated date of discharge: 12/26/17 - Patient Status Disposition: Home, Self-Care Condition: Good Functional capacity at discharge: independent ambulation - Discharge Instructions - Diet and Activity Activity: resume usual activities as tolerated Diet: regular diet Hospital Course PLANE TENDER Time Attestation: Total time spent providing and/or coordinating discharge services: Exam - Constitutional Vitals: Temp Pulse Resp BP 98.5 F 82 16 125/67 12/26/17 21:44 12/26/17 21:44 12/26/17 21:44 12/26/17 21:44 General appearance IM: A&O X 3, pleasant, no acute distress, answers questions appropriately - Respiratory Respiratory exam: Present: CTAB - Cardiovascular Cardiovascular exam IM: Present: RRR, +S1, +S2 - GI/Abdominal GI/Abdominal exam IM: normal bowel sounds, soft - Extremities Exam Extremities exam IM: Present: normal capillary refill, normal inspection - Neurological Exam Neurological exam: normal gait, oriented X3, reflexes normal - VTE Reasons for not Prescribing Prophylaxis: Treatment not Indicated - Low risk for VTE
== END 2017-12-26 23:05 | disposition home or self-care (01) ==
LOC: 1NENULAB
PROVIDERS: ADMIT Advanced Practice Midwife; ATTEND Advanced Practice Midwife

== ENCOUNTER 2017-12-29 03:48 | Inpatient (IN) ==
[2017-12-28 22:49] LABS: Amphetamine Screen,Urine Negative ng/mL (Cutoff=1000); Barbiturate Screen,Urine Negative ng/mL (Cutoff=200); Benzodiazepines Screen,Urine Negative ng/mL (Cutoff=200); Cannabinoid Screen,Urine Negative ng/mL (Cutoff = 50); Cocaine Screen,Urine Negative ng/mL (Cutoff= 300); Opiate Screen,Urine Negative ng/mL (Cutoff=300); Phencyclidine Screen,Urine Negative ng/mL (Cutoff=25)
--- NOTE | 2017-12-29 02:50 | OB/GYN History & Physical ---
Date of Encounter: 12/29/17 Time of Encounter: 09:30 Assessment and Plan (1) Active labor at term Current visit: Yes Status: Acute Plan: - serial cervical check with change - nubain 10 mg IVP given once - reactive NST - patient desires epidural -expectant management. Anticipate (2) 38 weeks gestation of Current visit: No Status: Acute (3) NST (non-stress test) reactive Current visit: No Status: Acute History of Present Illness Chief complaint: contractions HPI: Ms. Sorensen is a 22 year old female at 38+3 weeks presented to labor and delivery for in active labor. Patient states that she saw Mercedes in the office today and was 5 cm dilated. She started having contractions every 3-4 minutes. Patient's is complicated by short interval between pregnancies and varicella non-immune. Reports active movement. Patient denies vaginal bleeding, contractions, leakage of fluids. Denies N/V, changes in vision, PACE. Patient follows with midwives. PNL: Blood type O+. GBS neg, RI, HBsAG neg, HIV neg. RPR neg, varicella nonimmune Past Med Surg Social Fam HX - Past Medical History Medical history: other (verruca vulgaris, acne) Psychiatric history: no psych history - Past Surgical History Surgical History: no surgical history - Social History Smoking Status: Former smoker Smokeless Tobacco Status: No Alcohol use: none Drug use: none - Family History Mother Name: Karen Carlos Age: 40 Family Member Ethnicity: Non- Twin of Family Member: Yes, Fraternal Living Status: Still Living Hx Family Cardiac Disorders: No Hx Family Respiratory Disorders: No Hx Family Cancer: No Hx Family GI Disorders: No Hx Family Genitourinary Disorders: No Hx Family Endocrine Disorder: No Hx Family Musculoskeletal Disorders: No Hx Family Neuromuscular Disorders: No Hx Family Neurologic Disorders: No Hx Family HEENT Disorders: No Hx Family Autoimmune Disorders: No Hx Family Reproductive Disorders: No Hx Family Psychosocial Disorders: No Hx Family Medical Disorders: No Obstetrical History - Pregnancies : 2 Para: 1 Term: 1 : 0 Ab's: 0 Livin - History/Complications History/Complications: Total pregnancies 2. Total living children 1. Medications and Allergies Vit Calc,Iron,Folic [ Vitamins] 1 each PO DAILY #30 tablet [Rx] Ondansetron HCl [Zofran] 4 mg PO Q12H PRN 11/24/17 [History] Oseltamivir [Tamiflu] 75 mg PO BID 11/24/17 [History] cephALEXin [Keflex] 500 mg PO BID #14 capsule 11/26/17 [Rx] 3 Allergy/AdvReac Type Severity Reaction Status Date / Time No Known Allergies Allergy Verified 12/28/17 22:06 Review of System OB All systems PM: reviewed and no additional remarkable complaints except as stated Exam - Constitutional Constitutional: well developed - HEENT HEENT: EOMI - Neck Neck exam: full ROM - Lungs Respiratory exam: CTAB - Cardiovascular Cardiovascular exam: RRR - Abdomen Abdomen: Present: bowel sounds normal - Extremities Extremities exam: full ROM, normal inspection - Vulva Vulva: bilateral: normal - Vagina Vagina: Present: normal moisture - Cervix Dilation: 5 Effacement: 70 Station: -1 - Uterus Uterus exam: Present: normal size Results Result Diagrams: 12/29/17 03:50 All other labs normal. - VTE Reasons for not Prescribing Prophylaxis: Treatment not Indicated - Low risk for VTE
[~2017-12-29 03:48] MED LIST: *HR* Nalbuphine 20 MG/ML AMPUL IVP PRN; Famotidine 20 MG/2 ML VIAL IVP PRN; Metoclopramide 10 MG/2 ML VIAL IVP PRN; Naloxone 0.4 MG/ML INJ IVP PRN
[2017-12-29] MEDS ORDERED: Ringers Solution, Lactated 1,000 ML ONE ×2 (03:50→05:12)
[2017-12-29 03:55] LABS: Basophils # 0.1 K/mcL (0.0-0.2); Basophils % 0.3 %; Eosinophils # 0.1 K/mcL (0.0-0.6); Eosinophils % 0.6 %; Hematocrit 34.4 % (35.3-44.9); Hemoglobin 11.8 g/dL (11.5-15.4); Immature Granulocytes % 0.9 % (0-4); Lymphocytes # 2.8 K/mcL (0.6-4.6); Mean Corpuscular HGB Conc 34.3 g/dL (31.6-35.5); Mean Corpuscular Hemoglobin 29.2 pg (28.0-33.3); Mean Corpuscular Volume 85.1 fL (83.0-100.0); Mean Platelet Volume 10.7 fL (9.4-12.4); Monocytes # 0.7 K/mcL (0.0-1.3); Monocytes % 3.8 %; Neutrophils # 13.8 K/mcL (1.6-8.9); Platelet Count 231 K/mcL (140-400); Red Blood Count 4.04 M/mcL (3.82-4.97); Red Cell Distribution Width 13.7 % (11.5-14.5); Segmented Neutrophils % 78.4 %
--- NOTE | 2017-12-29 04:06 | Anesthesia Evaluation PreOp ---
Date of Encounter: 12/29/17 Time of Encounter: 04:04 - Past History Planned Operation: gordy Cardiac History: Denies any Significant Hx Pulmonary History: Denies Any Significant HX Other Medical History: Denies Any Significant HX, GERD Anesthesia History: No Prior Anesthetic Complications, Past Anesthesia (godry) : Yes Test: Positive Alcohol Use: none Drug use: none Medications and Allergies Vit Calc,Iron,Folic [ Vitamins] 1 each PO DAILY #30 tablet [Rx] Ondansetron HCl [Zofran] 4 mg PO Q12H PRN 11/24/17 [History] Oseltamivir [Tamiflu] 75 mg PO BID 11/24/17 [History] cephALEXin [Keflex] 500 mg PO BID #14 capsule 11/26/17 [Rx] 3 Allergy/AdvReac Type Severity Reaction Status Date / Time No Known Allergies Allergy Verified 12/28/17 22:06 - Meds/Allergy Pre-op Review Medications Reviewed: Yes Allergies Reviewed: Yes Beta Blockers on Current Med List: No Anesthesia Results - Labs 12/29/17 03:50 Anesthesia Exam Height: 1.7 Weight: 82 NPO (# of Hours): 6 Pain Scale: 7 Pain Scale Used: Numeric (1 - 10) - HEENT Pupil (Motor): Pupils equal Mallampati: II Teeth: Normal Oral Opening: Greater than 3 - BRIM WELT SEWING MACHINE OPERATOR LOC: Oriented BRIM WELT SEWING MACHINE OPERATOR Motor: Normal RUE, Normal LUE, Normal RLE, Normal LLE, Normal Face BRIM WELT SEWING MACHINE OPERATOR Sensory: Normal: RUE, LUE, RLE, LLE, Face - Cardiac Rhythm: Regular Murmur: None - Pulmonary Breath Sounds: bilateral Clear Respiratory Effort: Symmetrical Anesthesia Assess/Plan ASA Score: 2 Modified [place] Scale for Level of Consciousness: Cooperative, oriented, and tranquil Anesthetic Plan: Regional (risks discuussed, questions answered, consented) Autologous Blood: No Monitoring Plan: Standard Monitors Recovery Plan: Other
[2017-12-29] MEDS ORDERED: *HR* FentaNYL (PF) 100 MCG/2 ML VIAL EP ONE (04:07)
[2017-12-29] MEDS ORDERED: *HR* FentaNYL (PF) 100 MCG/2 ML VIAL ONE (04:09)
[2017-12-29] MEDS ORDERED: Epidural Premix (fent/bupiv) 110 ML EP ONE (04:09)
[2017-12-29] MEDS ORDERED: Epidural Premix (fent/bupiv) 110 ML EP SCH (04:15)
--- NOTE | 2017-12-29 04:37 | Anesthesia Procedures ---
Date of Encounter: 12/29/17 Time of Encounter: 04:35 Procedures: Anesthesia - Epidural/Spinal Patient ID/Chart reviewed: Yes Patient examined: Yes OB Eval: Gestational age: 39 OB Eval: : 2 OB Eval: Hx Para: 1 OB Eval: Dilated at (cm): 7 OB Eval: Contractions: Non-stressed pattern Consent Obtained: Yes Supplemental Oxygen: None/Room Air Site Prep: Aseptic Technique, Sterile prep and drape, 0.5% Chlorhexidine/Alcohol Patient position: upright Local Anesthetic: Lidocaine 1% Amount of Local Anesthetic used: 4 Touhy Needle Gauge: 18 Touhy Needle Depth (cm): 6 Catheter Depth at Skin (cm): 15 Test Dose (1.5% Lido + Epi): Volume given (mls): 3 Test Dose Result: Negative Loading Dose: Fentanyl (mcg): 100 Loading Dose: Other: rop 0.2% 10cc Infusion Rate (mls/hr): [address]: Tegaderm Interspace Used: L2-L3 Loss of Resistance (EBONY): Yes Blood: No CSF: No Paresthesia: No Procedure: aseptic, tolerated well, VSS, effective Vitals + FHT's: 117/65 84 fht 123
[2017-12-29] MEDS ORDERED: Ringers Solution, Lactated 1,000 ML IVC SCH (05:15)
[2017-12-29] MEDS ORDERED: Oxytocin 20 units/ LR 1000 mL 20 UNIT/1,000 ML BAG IVC ONE (07:40)
--- NOTE | 2017-12-29 08:21 | OB/GYN Procedure Note ---
Delivery - Delivery Date: 12/29/17 Provider: Mona Mariscal Intrapartum events: none Delivery induction: none Delivery monitor: external FHT, external uterine Anesthesia: epidural Estimated Blood Loss: 100 - (s) A Infant Delivery Date: 12/29/17 Delivery Time: 07:51 Presentation: vertex Position: AXEL Route of delivery: Gender: Female Viability: Viable Pounds: 6 Ounces: 14 Weight Gram: 3105 kg at 1 minute: 9 at 5 mins: 9 Shoulder Dystocia: not encountered Specimens collected: cord blood Placenta: spontaneous Cord: 3 umbilical vessels - Repair Episiotomy: none Laceration Description: Labial (superficial) - Complications Delivery complications: none Delivery comments: of vigorous viable female infant in the AXEL position. No nuchal. No meconium. Shoulders delivered easily. No shoulder dystocia. Infant placed on mom 's belly. Apgars 9/9 at 1 and 5 minutes. Cord double clamped and cut after pulsations ceased. Placenta delivered spontaneously appears grossly intact. 3 vessel cord present. Upon peritoneal inspection, superficial right labial, hemostatsis stable and left to heal by second intention. Fundus firm and at u/ 2. EBL 300ml. delivery attended by Dr. Magui Olson. Gonzalo Mariscal CNM present in room for delivery. Dr. Vivas notified. Infant and mother stable in recovery. Pericare instructions given to patient. - Disposition Mom disposition: stable in LDR [place] disposition: stable in LDR
[2017-12-29] MEDS ORDERED: Oxytocin 20 units/ LR 1000 mL 20 UNIT/1,000 ML BAG IVC SCH (10:43)
[2017-12-29] MEDS ORDERED: Acetaminophen 325 MG TABLET PO PRN (10:43)
[2017-12-29] MEDS ORDERED: Measles/Mumps/Rubella Vacc 0.5 ML VIAL SQ PRN (10:43)
[2017-12-29] MEDS ORDERED: Ibuprofen 600 MG TABLET PO PRN (10:43)
[2017-12-29] MEDS: Prenatal Vit/FA 1 EACH TABLET PO SCH (11:46)
--- NOTE | 2017-12-30 06:22 | Discharge Summary ---
Date of Encounter: 12/30/17 Time of Encounter: 06:20 - Discharge Diagnosis (1) Vaginal delivery Priority: Primary Status: Acute Comments: Pt meeting all milestones. - Discharge Medications Prescriptions: Ibuprofen [Motrin] 600 mg PO Q6HR PRN #30 tablet PRN Reason: Cramping Docusate [Colace] 100 mg PO BID #30 capsule Home Medications: Vit Calc,Iron,Folic [ Vitamins] 1 each PO DAILY #30 tablet [Rx] Acetaminophen [Tylenol] 650 mg PO Q6HR PRN tablet 12/30/17 [Rx] Docusate [Colace] 100 mg PO BID #30 capsule 12/30/17 [Rx] Ibuprofen [Motrin] 600 mg PO Q6HR PRN #30 tablet 12/30/17 [Rx] Allergies/Adverse Reactions: 3 Allergy/AdvReac Type Severity Reaction Status Date / Time No Known Allergies Allergy Verified 12/28/17 22:06 Data Procedures and tests throughout hospitalization: Laboratory Tests 12/28/17 12/29/17 22:10 03:50 WBC 17.5 H RBC 4.04 Hgb 11.8 Hct 34.4 L MCV 85.1 MCH 29.2 MCHC 34.3 RDW 13.7 Plt Count 231 MPV 10.7 Immature Gran % 0.9 Seg Neutrophils % 78.4 Lymphocytes % 16.0 Monocytes % 3.8 Eosinophils % 0.6 Basophils % 0.3 Neutrophils # 13.8 H Lymphocytes # 2.8 Monocytes # 0.7 Eosinophils # 0.1 Basophils # 0.1 Urine Opiates Screen Negative Ur Barbiturates Screen Negative Ur Phencyclidine Scrn Negative Ur Amphetamines Screen Negative U Benzodiazepines Scrn Negative Urine Cocaine Screen Negative U Marijuana (THC) Screen Negative Date of admission: 12/29/17 03:48 Primary care physician: PCP NONE Consults: 12/29/17 10:43 Consult to Ccu Nurse [CONS] Routine Comment: Vaginal delivery, consult needed Discharging clinician: Mona Mariscal Anticipated date of discharge: 12/30/17 - Patient Status Disposition: Home, Self-Care Condition: Good Functional capacity at discharge: independent ambulation Overall status at discharge: patient is progressing back to baseline - Discharge Instructions Follow Up With: NONE,PCP [Primary Care Provider] - Mona Mariscal CNM [Non-Partnered Physician] - - Diet and Activity Activity: increase activity as tolerated Diet: regular diet Hospital Course Reason for admission: active labor Delivery: Episiotomy: none Laceration: other (superficial labial) Other procedures: none complications: none Discharge diagnosis: IUP at term delivered baby: female Hospital course: - Delivery Date: 12/29/17 Provider: Mona Mariscal Intrapartum events: none Delivery induction: none Delivery monitor: external FHT, external uterine Anesthesia: epidural Estimated Blood Loss: 100 - (s) Infant A Delivery Date: 12/29/17 Delivery Time: 07:51 Presentation: vertex Position: AXEL Route of delivery: Gender: Female Viability: Viable Pounds: 6 Ounces: 14 Weight Gram: 3105 kg at 1 minute: 9 at 5 mins: 9 Shoulder Dystocia: not encountered Specimens collected: cord blood Placenta: spontaneous Cord: 3 umbilical vessels - Repair Episiotomy: none Laceration Description: Labial (superficial) - Complications Delivery complications: none - Disposition Mom disposition: home PPD#1 [place] disposition: home with mother, bottle feeding Time Attestation: Total time spent providing and/or coordinating discharge services: Time Spent: Less than 30 minutes Exam - Constitutional Vitals: Temp Pulse Resp BP Pulse Ox 98.2 F 61 14 109/69 99 12/30/17 02:56 12/30/17 02:56 12/30/17 02:56 12/30/17 02:56 12/30/17 02:56 General appearance IM: A&O X 3 - Respiratory Respiratory exam: Present: CTAB - Cardiovascular Cardiovascular exam IM: Present: RRR - GI/Abdominal GI/Abdominal exam IM: soft - Rectal Rectal exam: deferred - External exam: normal external exam Uterine Tone: Firm Uterus Position: At Umbilicus - Extremities Exam Extremities exam IM: Present: normal inspection - Neurological Exam Neurological exam: normal gait, oriented X3 - Psychiatric Additional comments: reports good mood - Other Additional findings: Pt undecided about contraception at this time. She will notify staff if she desires something prior to discharge.
[2017-12-30] MEDS: Prenatal Vit/FA 1 EACH TABLET PO SCH (07:37)
[2017-12-30 08:28] VITALS: BP 118/76
== END 2017-12-30 13:05 | disposition home or self-care (01) | DRG 560 ==
LOC: 1NENULAB → 1NENUOBS 10:46
PROVIDERS: ADMIT Advanced Practice Midwife; ATTEND Advanced Practice Midwife

== ENCOUNTER 2019-05-06 17:03 | Observation (INO) ==
--- NOTE | 2019-05-06 17:14 | Emergency Department Note ---
Disposition Clinical Impression: UTI (urinary tract infection) Qualifiers: Urinary tract infection type: site unspecified Hematuria presence: without hematuria Qualified Code(s): N39.0 - Urinary tract infection, site not specified Disposition: Admitted As Inpatient Condition: Good Time of Disposition: 21:15 General Adult HPI - General Stated complaint: vomiting Time Seen by Provider: 05/06/19 17:12 Source: patient Mode of arrival: ambulatory Limitations: no limitations Nursing Notes Reviewed: Yes Vital Signs Reviewed: Yes - History of Present Illness HPI Narrative: 23-year-old female, no significant past medical history, presenting to the ED complaining of one day of nausea vomiting and lower abdominal pain. Patient states she was seen at this facility last evening for chest pain without remarkable workup was sent home after GI cocktail which moderately relieved the pain. Patient states that the pain migrated from her chest into her abdomen and she began nausea and vomiting and unable to tolerate by mouth intake without throwing up. Patient states that she is 15 weeks and that she is having suprapubic abdominal pain, dull in nature 8 out of 10 on the pain scale. Patient denies any other symptoms at this time. Onset (ago): day(s) Location: abdomen Pain Severity: severe Pain Scale: 8 Quality: burning, dull Consistency: constant Improves with: nothing Worsens with: nothing Associated symptoms: Reports: nausea/vomiting Treatments Prior to Arrival: none - Related Data Home Medications Medication Instructions Recorded Confirmed Pnv No.95/Ferrous Fum/Folic AC 1 tab PO DAILY 05/06/19 05/06/19 [ Caplet] Previous Rx's Medication Instructions Recorded Metoclopramide [Reglan] 10 mg PO Q6HR PRN #15 tablet 05/06/19 Nitrofurantoin (BID) [Macrobid] 100 mg PO BID #6 capsule 05/06/19 Allergies Allergy/AdvReac Type Severity Reaction Status Date / Time No Known Allergies Allergy Verified 04/29/19 14:33 Review of Systems: *See History of Present Illness for more detail Constitutional: Denies: fever, chills Cardiovascular: Denies: chest pain Respiratory: Denies: dyspnea, cough, hemoptysis Gastrointestinal: Admits abdominal pain, nausea, vomiting Denies: diarrhea, constipation, hematemesis, melena, hematochezia Genitourinary: Denies: hematuria Musculoskeletal: Denies: back pain, neck pain Neurological: Denies: headache, weakness, lightheadedness/dizziness, numbness, paresthesias, difficulty with ambulation. Endocrine: Denies: fatigue All systems ED: reviewed and negative except as stated. Review of Systems: As Per HPI Past Medical History - Past Medical History Medical history: Reports: no medical history Surgical history: Reports: no surgical history Psychiatric history: Reports: no psych history INTERIOR DESIGN PROGRAM CHAIR history: Reports: no INTERIOR DESIGN PROGRAM CHAIR history - Social History Smoking Status: Never smoker Smokeless Tobacco Status: No Alcohol use: Reports: none Drug use: Reports: none Physical Exam Constitutional: No acute distress, [id number], engaged to conversation, speech is fluid, answers questions appropriately Neuro: GCS 15, no overt focal neurological deficits Head: Atraumatic, normocephalic Eyes: Pupils equal, round and reactive to light, no scleral icterus, no conjunctival injection Neck: Trachea midline without deviation. Anterior neck is supple without swelling. *Chest: Symmetric chest wall rise *Heart: Cardiac rhythm and rate are regular with S1 and S2 , no S3 or S4 appreciated, no murmurs, gallops, rubs, or clicks. *Lungs: Lungs are clear to auscultation bilaterally, without accessory muscle use or prolonged expiratory phase. No wheezes, rhonchi or stridor appreciated. Abdomen: Abdomen is , consistent with 15 weeks, soft to palpation, normal bowel sounds. No abdominal bruit auscultated. Non-distended, non-rigid, no organomegaly, no ascites appreciated. No pulsatile mass, no tenderness or guarding to palpation in all four quadrants, no rebound Extremities: Normal capillary refill without evidence of pedal edema, joint swelling or erythema. Pulses/motor/sensory intact in all 4 extremities. Psychiatric exam: Patient displays a normal affect and mood for the environment. No overt signs of hallucination. Integumentary: warm, dry, intact, normal color. No rash, cyanosis, diaphoresis, erythema, or pallor - General Limitations: no limitations General appearance: alert, in no apparent distress Course Course Narrative: Bedside ultrasound CBC, BMP, urinalysis IV fluid, Zofran for the management of patient's discomfort. - Reevaluation(s) Reevaluation #1: Bedside US shows a viable intrauterine consistent with dates. Good heart rate Vital Signs Temperature 98.2 F 05/06/19 17:26 Pulse Rate 116 05/06/19 17:26 Respiratory Rate 16 05/06/19 17:26 Blood Pressure 93/62 05/06/19 17:26 O2 Sat by Pulse Oximetry 100 05/06/19 17:26 Temperature 98.2 F 05/06/19 18:52 Pulse Rate 100 05/06/19 19:05 Respiratory Rate 16 05/06/19 18:52 Blood Pressure 119/64 05/06/19 19:31 O2 Sat by Pulse Oximetry 100 05/06/19 19:05 Oxygen Delivery Oxygen Delivery Room Air Medical Decision Making - MDM Narrative Medical decision making narrative: Patient continued to have nausea vomiting despite management in ED. Unable to tolerate by mouth intake Elevated white count concerning for pyelonephritis. Patient be admitted to hospitalist medicine service for further evaluation and management. Patient verbalizes understanding and agreement with this plan. - Lab Data Result diagrams: 05/06/19 18:19 05/06/19 18:19 Lab Results 05/06/19 05/06/19 05/06/19 Range/Units 17:34 17:34 18:19 WBC 14.3 H (4.3-11.1) K/mcL RBC 4.67 (3.82-4.97) M/mcL Hgb 13.7 (11.5-15.4) g/dL Hct 38.9 (35.3-44.9) % MCV 83.3 (83.0-100.0) fL MCH 29.3 (28.0-33.3) pg MCHC 35.2 (31.6-35.5) g/dL RDW 13.0 (11.5-14.5) % Plt Count 242 (140-400) K/mcL MPV 10.2 (9.4-12.4) fL Immature Gran % 0.6 (0-4) % Seg Neutrophils % 92.3 % Lymphocytes % 4.2 % Monocytes % 2.8 % Eosinophils % 0.0 % Basophils % 0.1 % Neutrophils # 13.2 H (1.6-8.9) K/mcL Lymphocytes # 0.6 (0.6-4.6) K/mcL Monocytes # 0.4 (0.0-1.3) K/mcL Eosinophils # 0.0 (0.0-0.6) K/mcL Basophils # 0.0 (0.0-0.2) K/mcL Sodium (136-145) mEq/L Potassium (3.5-5.1) mEq/L Chloride (98-107) mEq/L Carbon Dioxide (23-29) mEq/L BUN (6-20) mg/dL Creatinine (0.60-1.20) mg/dL Est GFR ( Amer) (> 60) Est GFR (Non-Af Amer) (> 60) BUN/Creatinine Ratio (6-26) Glucose (70-105) mg/dL Calculated Osmolality (280-300) Lactic Acid (0.5-2.2) mmol/L Calcium (8.6-10.3) mg/dL Urine Color Dark Yellow (Yellow) Urine Clarity Cloudy A (Clear) Urine pH 6.0 (5.0-8.0) pH Units Ur Specific [place] 1.019 (1.010-1.025) Urine Protein 30 H (Neg-Trace) mg/dL Urine Glucose (UA) Normal (Normal) mg/dL Urine Ketones Trace H (Negative) mg/dL Urine Blood Negative (Negative) Urine Nitrite Negative (Negative) Urine Bilirubin Small H (Negative) Urine Urobilinogen 2.0 H (Normal) mg/dL Ur Leukocyte Esterase Small H (Negative) Urine Microscopic RBC 5-15 H (0-3) per hpf Urine Microscopic WBC 30-50 H (0-3) per hpf Ur Squamous Epith Cells Many H (None-Few) per lpf Urine Bacteria Many H (None-Few) per hpf Hyaline Casts Few (None-Few) per lpf Ur Culture Indicated? YES A (NO) Urine Test Positive A (Negative) 05/06/19 05/06/19 Range/Units 18:19 19:47 WBC (4.3-11.1) K/mcL RBC (3.82-4.97) M/mcL Hgb (11.5-15.4) g/dL Hct (35.3-44.9) % MCV (83.0-100.0) fL MCH (28.0-33.3) pg MCHC (31.6-35.5) g/dL RDW (11.5-14.5) % Plt Count (140-400) K/mcL MPV (9.4-12.4) fL Immature Gran % (0-4) % Seg Neutrophils % % Lymphocytes % % Monocytes % % Eosinophils % % Basophils % % Neutrophils # (1.6-8.9) K/mcL Lymphocytes # (0.6-4.6) K/mcL Monocytes # (0.0-1.3) K/mcL Eosinophils # (0.0-0.6) K/mcL Basophils # (0.0-0.2) K/mcL Sodium 136 (136-145) mEq/L Potassium 3.2 L (3.5-5.1) mEq/L Chloride 102 (98-107) mEq/L Carbon Dioxide 22 L (23-29) mEq/L BUN 7 (6-20) mg/dL Creatinine 0.56 L (0.60-1.20) mg/dL Est GFR ( Amer) > 60 (> 60) Est GFR (Non-Af Amer) > 60 (> 60) BUN/Creatinine Ratio 13 (6-26) Glucose 114 H (70-105) mg/dL Calculated Osmolality 281 (280-300) Lactic Acid 1.2 (0.5-2.2) mmol/L Calcium 8.8 (8.6-10.3) mg/dL Urine Color (Yellow) Urine Clarity (Clear) Urine pH (5.0-8.0) pH Units Ur Specific [place] (1.010-1.025) Urine Protein (Neg-Trace) mg/dL Urine Glucose (UA) (Normal) mg/dL Urine Ketones (Negative) mg/dL Urine Blood (Negative) Urine Nitrite (Negative) Urine Bilirubin (Negative) Urine Urobilinogen (Normal) mg/dL Ur Leukocyte Esterase (Negative) Urine Microscopic RBC (0-3) per hpf Urine Microscopic WBC (0-3) per hpf Ur Squamous Epith Cells (None-Few) per lpf Urine Bacteria (None-Few) per hpf Hyaline Casts (None-Few) per lpf Ur Culture Indicated? (NO) Urine Test (Negative)
[2019-05-06] MEDS ORDERED: Ondansetron ODT 4 MG TAB.RAPDIS SL ONE (17:32)
[2019-05-06 17:46] LABS: Bilirubin,Urine Small (Negative); Blood,Urine Negative (Negative); Clarity,Urine Cloudy (Clear); Color,Urine Dark Yellow (Yellow); Glucose,Urine (UA) Normal (Normal); Ketones,Urine Trace mg/dL (Negative); Leukocyte Esterase,Urine Small (Negative); Nitrite,Urine Negative (Negative); Protein,Urine 30 mg/dL (Neg-Trace); Specific Gravity,Urine 1.019 (1.010-1.025)
[2019-05-06 17:48] LABS: Bacteria,Urine Many per hpf (None-Few); Hyaline Casts,Urine Few per lpf (None-Few); Squamous Epithelial Cell,Urine Many per lpf (None-Few); WBC,Urine 30-50 per hpf (0-3)
[2019-05-06] MEDS ORDERED: cephALEXin 500 MG CAPSULE PO STA (18:03)
[2019-05-06] MEDS ORDERED: 0.9 % Sodium Chloride 1,000 ML IVC ONE ×2 (18:05→19:16)
[2019-05-06] MEDS ORDERED: cefTRIAXone 1,000 MG in Water for inj. (sterile) 20 ML 10 ML IVP ONE (18:05)
[2019-05-06] MEDS ORDERED: Ondansetron 4 MG/2 ML VIAL IVP ONE (18:05)
--- NOTE | 2019-05-06 18:08 | Emergency Department Note ---
Disposition Clinical Impression: UTI (urinary tract infection) Qualifiers: Urinary tract infection type: site unspecified Hematuria presence: without hematuria Qualified Code(s): N39.0 - Urinary tract infection, site not specified Disposition: Still a Patient Condition: Good Referrals: NONE,PCP [Primary Care Provider] - Time of Disposition: 18:08 General Adult HPI - General Chief complaint: ED Nausea/Vomiting/Diarrhea Stated complaint: vomiting Time Seen by Provider: 05/06/19 17:12 - History of Present Illness Pain Scale: 0 - Related Data Previous Rx's Medication Instructions Recorded Metoclopramide [Reglan] 5 mg PO Q6HR #5 tablet 03/24/19 Metoclopramide [Reglan] 10 mg PO Q6HR PRN #15 tablet 05/06/19 Nitrofurantoin (BID) [Macrobid] 100 mg PO BID #6 capsule 05/06/19 Allergies Allergy/AdvReac Type Severity Reaction Status Date / Time No Known Allergies Allergy Verified 04/29/19 14:33 Past Medical History - Past Medical History Medical history: Reports: no medical history Surgical history: Reports: no surgical history Psychiatric history: Reports: no psych history DIRECTOR OF STUDENT AID history: Reports: no DIRECTOR OF STUDENT AID history - Social History Smoking Status: Never smoker Smokeless Tobacco Status: No Alcohol use: Reports: none Drug use: Reports: none Course Vital Signs Temperature 98.2 F 05/06/19 17:26 Pulse Rate 116 05/06/19 17:26 Respiratory Rate 16 05/06/19 17:26 Blood Pressure 93/62 05/06/19 17:26 O2 Sat by Pulse Oximetry 100 05/06/19 17:26 Temperature 98.2 F 05/06/19 17:26 Pulse Rate 116 05/06/19 17:26 Respiratory Rate 16 05/06/19 17:26 Blood Pressure 93/62 05/06/19 17:26 O2 Sat by Pulse Oximetry 100 05/06/19 17:26 Oxygen Delivery Oxygen Delivery Room Air Medical Decision Making - Lab Data Lab Results 05/06/19 05/06/19 Range/Units 17:34 17:34 Urine Color Dark Yellow (Yellow) Urine Clarity Cloudy A (Clear) Urine pH 6.0 (5.0-8.0) pH Units Ur Specific [place] 1.019 (1.010-1.025) Urine Protein 30 H (Neg-Trace) mg/dL Urine Glucose (UA) Normal (Normal) mg/dL Urine Ketones Trace H (Negative) mg/dL Urine Blood Negative (Negative) Urine Nitrite Negative (Negative) Urine Bilirubin Small H (Negative) Urine Urobilinogen 2.0 H (Normal) mg/dL Ur Leukocyte Esterase Small H (Negative) Urine Microscopic RBC 5-15 H (0-3) per hpf Urine Microscopic WBC 30-50 H (0-3) per hpf Ur Squamous Epith Cells Many H (None-Few) per lpf Urine Bacteria Many H (None-Few) per hpf Hyaline Casts Few (None-Few) per lpf Ur Culture Indicated? YES A (NO) Urine Test Positive A (Negative) Attestation Statement - Attestation Attestation: I examined this patient and my medical decision-making was reviewed with the Resident Physician. I agree with the documented findings, disposition and treatment plan as described except to the extent set forth below. 23 year old female presents ot the eD with complaints of suprapubic pain and low flank pain. Nish is tachycardiac and hypotensive on arrival. It appears that she is currently 15 weeks . Nish has a confirumed IUP per plaster tender group at [place] and bedside ultrsound that I pergormed shows a HR of 169 and good movement. She does have a UTI on UA, concern would be for pyelone phretitis. baslein labs ordered and IVF with rocephin and zofran ordered for further therapy and we will continue to monitor for improvement
[2019-05-06 18:32] LABS: Basophils % 0.1 %; Hematocrit 38.9 % (35.3-44.9); Hemoglobin 13.7 g/dL (11.5-15.4); Immature Granulocytes % 0.6 % (0-4); Lymphocytes # 0.6 K/mcL (0.6-4.6); Lymphocytes % 4.2 %; Mean Corpuscular HGB Conc 35.2 g/dL (31.6-35.5); Mean Corpuscular Hemoglobin 29.3 pg (28.0-33.3); Mean Corpuscular Volume 83.3 fL (83.0-100.0); Mean Platelet Volume 10.2 fL (9.4-12.4); Monocytes # 0.4 K/mcL (0.0-1.3); Monocytes % 2.8 %; Neutrophils # 13.2 K/mcL (1.6-8.9); Platelet Count 242 K/mcL (140-400); Red Blood Count 4.67 M/mcL (3.82-4.97); Segmented Neutrophils % 92.3 %; White Blood Count 14.3 K/mcL (4.3-11.1)
[2019-05-06 18:48] LABS: BUN/Creatinine Ratio 13 (6-26); Blood Urea Nitrogen 7 mg/dL (6-20); Calcium 8.8 mg/dL (8.6-10.3); Carbon Dioxide 22 mEq/L (23-29); Chloride 102 mEq/L (98-107); Glucose 114 mg/dL (70-105); Osmolality,Calculated 281 (280-300); Potassium 3.2 mEq/L (3.5-5.1); Sodium 136 mEq/L (136-145); eGFR For African Americans > 60 (> 60); eGFR For Non-African Americans > 60 (> 60)
[2019-05-06] MEDS ORDERED: Potassium Chloride Elixir 20 MEQ/15 ML UDC PO ONE (19:16)
[2019-05-06] MEDS ORDERED: Ondansetron 4 MG/2 ML VIAL IVP PRN (20:20)
[2019-05-06] MEDS ORDERED: Acetaminophen 325 MG TABLET PO PRN (20:20)
[2019-05-06] MEDS: 0.9 % Sodium Chloride 1,000 ML IVC SCH (21:50)
--- NOTE | 2019-05-06 22:41 | Internal Med History&Physical ---
Date of Encounter: 05/06/19 Time of Encounter: 22:40 Internal Medicine - H&P: HPI Chief complaint: vomiting Admitted From: Home Plans for Post Hospital Care: Home History of present illness: Magui Sorensen is a 23-year-old woman who is currently at 15 weeks of gestation presented to the emergency room last night complaining of intractable nausea and vomiting as well as lower abdominal and back pain for the preceding 24 hours. She was found on analysis to have a UTI and discharged home on cephalexin. She comes back to the ER tonight complaining of worsening symptoms, unable to keep anything down or take her medications due to incessant vomiting. She is admitted for by mouth intolerance in the setting of a UTI while . She was started on IV fluids and ceftriaxone. Vitals: Reviewed General: Well-developed female lying in bed with chills Skin: Warm and dry. HEENT: Dry mucous membranes. No conjunctivae pallor. Neck: No lymphadenopathy. No JVD. No carotid bruits. No palpable thyroid. Chest: Normal thoracic expansion. Normal breath sounds. Clear to auscultation. Heart: Normal S1 & S2; rhythmic. No rubs or murmurs. Abdomen: Non-distended, soft and mildly tender and. Umbilical region with no peritoneal reaction Extremities: No clubbing, cyanosis or edema. No calf tenderness. Normal distal pulses. Neurological: Awake, alert and oriented to person, place and time. No focal deficits. Psych: Affect appropriate. Assessment/Plan 1. Sepsis due to Complicated UTI: In the setting of and systemic signs of illness as evidenced by tachycardia and leukocytosis. We will send blood and urine cultures and start ceftriaxone 1 g daily. Follow culture results. 2. Intractable nausea/vomiting: Anti-emetics as needed. IV fluid resuscitation started. Monitor and supplement electrolytes accordingly. 3. : Currently at 15.4 weeks. She will continue to undergo [facility] follow-up. 4. DVT prophylaxis: Mechanical. Past Med Surg Social Fam HX - Past Medical History Medical history: no medical history Additional medical history: denies seizures, last 1 year ago Psychiatric history: no psych history - Past Surgical History Surgical History: no surgical history - Social History Smoking Status: Never smoker Smokeless Tobacco Status: No Alcohol use: none Drug use: none - Family History Mother Family Member Ethnicity: Non- Twin of Family Member: Yes, Fraternal Living Status: Still Living Hx Family Cardiac Disorders: No Hx Family Respiratory Disorders: No Hx Family Cancer: No Hx Family GI Disorders: No Hx Family Endocrine Disorder: No Hx Family Neuromuscular Disorders: No Hx Family Neurologic Disorders: No Hx Family HEENT Disorders: No Hx Family Autoimmune Disorders: No Internal Medicine - H&P: Meds Metoclopramide [Reglan] 10 mg PO Q6HR PRN #15 tablet 05/06/19 [Rx] Nitrofurantoin (BID) [Macrobid] 100 mg PO BID #6 capsule 05/06/19 [Rx] Pnv No.95/Ferrous Fum/Folic AC [ Caplet] 1 tab PO DAILY 05/06/19 [History] Allergy/AdvReac Type Severity Reaction Status Date / Time No Known Allergies Allergy Verified 04/29/19 14:33 All Systems PM: A 10-system review of systems was performed and is negative for pertinent findings except as documented above in the HPI. Family history reviewed and found non-contributory. - Constitutional Vitals: Temp Pulse Resp BP Pulse Ox 97.5 F L 100 16 100/62 97 05/06/19 22:01 05/06/19 22:01 05/06/19 22:01 05/06/19 22:01 05/06/19 22:01 Exam: . Internal Med - H&P Results - Labs CBC & Chem 7: 05/06/19 18:19 05/06/19 18:19 Labs: Short CBC 05/06/19 Range/Units 18:19 WBC 14.3 H (4.3-11.1) K/mcL Hgb 13.7 (11.5-15.4) g/dL Hct 38.9 (35.3-44.9) % Plt Count 242 (140-400) K/mcL Neutrophils # 13.2 H (1.6-8.9) K/mcL BMP 05/06/19 18:19 Sodium 136 Potassium 3.2 L Chloride 102 Carbon Dioxide 22 L BUN 7 Creatinine 0.56 L Glucose 114 H Calcium 8.8 Urine 05/06/19 Range/Units 17:34 Urine Color Dark Yellow (Yellow) Urine Clarity Cloudy A (Clear) Urine pH 6.0 (5.0-8.0) pH Units Ur Specific [place] 1.019 (1.010-1.025) Urine Protein 30 H (Neg-Trace) mg/dL Urine Glucose (UA) Normal (Normal) mg/dL - Time Spent With Patient Total time spent is greater than 50% in coordination of care (as documented) at patient's floor/unit and/or counseling patient: Greater than 35 minutes
[2019-05-07] MEDS: 0.9 % Sodium Chloride 1,000 ML IVC SCH (05:59)
[2019-05-07 07:15] LABS: Basophils % 0.4 %; Eosinophils % 0.1 %; Hematocrit 34.5 % (35.3-44.9); Immature Granulocytes % 0.6 % (0-4); Lymphocytes # 1.3 K/mcL (0.6-4.6); Lymphocytes % 16.5 %; Mean Corpuscular HGB Conc 34.5 g/dL (31.6-35.5); Mean Corpuscular Hemoglobin 29.7 pg (28.0-33.3); Mean Platelet Volume 10.5 fL (9.4-12.4); Monocytes # 0.4 K/mcL (0.0-1.3); Monocytes % 4.8 %; Neutrophils # 6.2 K/mcL (1.6-8.9); Platelet Count 216 K/mcL (140-400); Red Blood Count 4.01 M/mcL (3.82-4.97); Segmented Neutrophils % 77.6 %
[2019-05-07 07:19] LABS: Hemoglobin 11.9 g/dL (11.5-15.4)
[2019-05-07 07:31] LABS: Alanine Aminotransferase 9 Units/L (7-52); Albumin 3.1 g/dL (3.5-5.7); Albumin/Globulin Ratio 1.2 (1.1-2.2); Alkaline Phosphatase 55 Units/L (34-104); Aspartate Amino Transferase 10 Units/L (13-39); BUN/Creatinine Ratio 10 (6-26); Bilirubin,Direct 0.1 mg/dL (0.0-0.2); Bilirubin,Indirect 0.3 mg/dL (0.0-1.2); Bilirubin,Total 0.4 mg/dL (0.3-1.0); Blood Urea Nitrogen 4 mg/dL (6-20); Calcium 8.1 mg/dL (8.6-10.3); Carbon Dioxide 21 mEq/L (23-29); Chloride 107 mEq/L (98-107); Globulin 2.6 g/dL (2.4-3.5); Glucose 94 mg/dL (70-105); Magnesium 1.7 mg/dL (1.6-2.6); Osmolality,Calculated 277 (280-300); Potassium 3.5 mEq/L (3.5-5.1); Sodium 135 mEq/L (136-145); Total Protein 5.7 g/dL (6.4-8.9); eGFR For African Americans > 60 (> 60); eGFR For Non-African Americans > 60 (> 60)
[2019-05-07] MEDS: cefTRIAXone 1,000 MG in Water for inj. (sterile) 20 ML 10 ML IVP SCH (09:25)
--- NOTE | 2019-05-07 12:54 | Internal Med Progress Note ---
Hospitalist Progress Note - Encounter Date of Encounter: 05/07/19 Time of Encounter: 10:30 - Subjective Interval History: Pt was seen and examined at bedside Pt stated she is feeling better today Still have some nausea.. but no more vommitings still has poor appetite - Exam Vitals: Temp Pulse Resp BP Pulse Ox 98.2 F 79 16 94/60 98 05/07/19 12:26 05/07/19 12:26 05/07/19 12:26 05/07/19 12:26 05/07/19 12:26 Exam: Gen: Alert, awake, Oriented to time,place and person..Dehydrated.. Dry mucus membranes Chest: Diminished breath sounds B/L, No wheezing, No crackles, No rales Heart: S1S2+ RRR No murmurs Abd: Soft, NT, BS +, No organomegaly Back: No CVA tenderness noticed Ext: No edema, pulses are palpable, No calf tenderness Neuro : No acute focal neuro deficits noticed Skin: No rash. - Assessment and Plan (1) UTI (urinary tract infection) Current Visit: Yes Status: Acute Assessment and Plan: UA - concerning for UTI Waiting on Urine cx Blood cx no growth cont empirical abx Rocephin IV hydration (2) Intractable nausea and vomiting Current Visit: No Status: Acute Assessment and Plan: Due to UTI improving continue symptomatic and supportive care (3) Current Visit: No Status: Acute Assessment and Plan: Consulted OB to check HR and evaluated the pt (4) Dehydration Current Visit: Yes Status: Acute Assessment and Plan: due to UTI cont IVF - Time Spent with Patient Total time spent is greater than 50% in coordination of care (as documented) at patient's floor/unit and/or counseling patient: Internal Medicine: Result - Labs CBC & Chem 7: 05/07/19 06:37 05/07/19 06:37 Labs: Short CBC 05/06/19 05/07/19 Range/Units 18:19 06:37 WBC 14.3 H 8.0 (4.3-11.1) K/mcL Hgb 13.7 11.9 D (11.5-15.4) g/dL Hct 38.9 34.5 L (35.3-44.9) % Plt Count 242 216 (140-400) K/mcL Neutrophils # 13.2 H 6.2 (1.6-8.9) K/mcL BMP 05/06/19 05/07/19 18:19 06:37 Sodium 136 135 L Potassium 3.2 L 3.5 Chloride 102 107 Carbon Dioxide 22 L 21 L BUN 7 4 L Creatinine 0.56 L 0.42 L Glucose 114 H 94 Calcium 8.8 8.1 L Liver Function 05/07/19 Range/Units 06:37 Total Bilirubin 0.4 (0.3-1.0) mg/dL Direct Bilirubin 0.1 (0.0-0.2) mg/dL AST 10 L (13-39) Units/L ALT 9 (7-52) Units/L Alkaline Phosphatase 55 (34-104) Units/L Albumin 3.1 L (3.5-5.7) g/dL Urine 05/06/19 Range/Units 17:34 Urine Color Dark Yellow (Yellow) Urine Clarity Cloudy A (Clear) Urine pH 6.0 (5.0-8.0) pH Units Ur Specific [place] 1.019 (1.010-1.025) Urine Protein 30 H (Neg-Trace) mg/dL Urine Glucose (UA) Normal (Normal) mg/dL Consult Discharge Plan - Plan Referrals: NONE,PCP [Primary Care Provider] - (1) UTI (urinary tract infection) Qualifiers: Urinary tract infection type: site unspecified Hematuria presence: without hematuria Qualified Code(s): N39.0 - Urinary tract infection, site not specified (2) Intractable nausea and vomiting Qualifiers: Vomiting type: unspecified Qualified Code(s): R11.2 - Nausea with vomiting, unspecified (3) Qualifiers: Weeks of gestation: 14 weeks Qualified Code(s): Z3A.14 - 14 weeks gestation of
--- NOTE | 2019-05-07 14:31 | OB/GYN Consult Note ---
Date of Encounter: 05/07/19 Time of Encounter: 14:00 Assessment and Plan (1) 15 weeks gestation of Current Visit: Yes Status: Acute stable Follow up in the office for routine care as scheduled and PRN (2) UTI (urinary tract infection) Current Visit: Yes Status: Acute Thank you for the consult Recommendations are as follows Will need monthly urine cultures due to UTI in Continue IV ceftriaxone and supportive care Rehydration IV and PO Urine and blood cultures pending; may need to change antibiotics after cultures result Anticipate discharge home tomorrow or Tuesday POC per consult with Dr York Qualifiers: Urinary tract infection type: site unspecified Hematuria presence: without hematuria Qualified Code(s): N39.0 - Urinary tract infection, site not specified History of Present Illness Consult date: 05/07/19 Reason for consult: other () Chief complaint: Back pain, Nausea & Vomiting History of present illness: Ms Sorensen is a at 15 weeks and 4 days that presents to ED with C/O intractable nasea and back pain that lasted 24 hours prior to admission. She returned to the emergency room and stated that her pain was worse and she was unable to keep even her medications down. She was admitted due to oral i ntolerance of antibiotics. She was started on IV fluid therapy and ceftriaxone. Patient states that she feels much better since being admitted. She denies cramping, contractions, vaginal bleeding, and vaginal discharge. She is seen by the midwives for her care. Past Med Surg Social Fam HX - Past Medical History Medical history: no medical history Additional medical history: denies seizures, last 1 year ago Psychiatric history: no psych history - Past Surgical History Surgical History: no surgical history - Social History Smoking Status: Never smoker Smokeless Tobacco Status: No Alcohol use: none Drug use: none - Family History Mother Family Member Ethnicity: Non- Twin of Family Member: Yes, Fraternal Living Status: Still Living Hx Family Cardiac Disorders: No Hx Family Respiratory Disorders: No Hx Family Cancer: No Hx Family GI Disorders: No Hx Family Endocrine Disorder: No Hx Family Neuromuscular Disorders: No Hx Family Neurologic Disorders: No Hx Family HEENT Disorders: No Hx Family Autoimmune Disorders: No Medications and Allergies Metoclopramide [Reglan] 10 mg PO Q6HR PRN #15 tablet 05/06/19 [Rx] Nitrofurantoin (BID) [Macrobid] 100 mg PO BID #6 capsule 05/06/19 [Rx] Pnv No.95/Ferrous Fum/Folic AC [ Caplet] 1 tab PO DAILY 05/06/19 [History] Allergy/AdvReac Type Severity Reaction Status Date / Time No Known Allergies Allergy Verified 04/29/19 14:33 Review of Systems Constitutional: fatigue, no anorexia, no chills, no headache(s) Gastrointestinal: no nausea, no vomiting Genitourinary Female: no abnormal vaginal bleeding, no difficulty urinating, no pelvic pain, no vaginal discharge Menstruation: other (currently ) Psychiatric: no anxiety, no depression, no homicidal ideation, no suicidal ideation Exam - Vital Signs Vital signs: Initial Vital Signs Temp Pulse Resp BP Pulse Ox 98.2 F 116 16 93/62 100 05/06/19 17:26 05/06/19 17:26 05/06/19 17:26 05/06/19 17:26 05/06/19 17:26 - Constitutional Constitutional: well developed, well nourished, no acute distress, average body habitus - Uterus Uterus exam: Present: enlarged (appropriate for gestation) - Comments Comments: FHTs per doppler 160's Fundus soft Results Result Diagrams: 05/07/19 06:37 05/07/19 06:37 Abnormal lab results WBC 14.3 K/mcL (4.3-11.1) H 05/06/19 18:19 Hct 34.5 % (35.3-44.9) L 05/07/19 06:37 13.2 K/mcL (1.6-8.9) H 05/06/19 18:19 Sodium 135 mEq/L (136-145) L 05/07/19 06:37 Potassium 3.2 mEq/L (3.5-5.1) L 05/06/19 18:19 Carbon Dioxide 21 mEq/L (23-29) L 05/07/19 06:37 BUN 4 mg/dL (6-20) L 05/07/19 06:37 0.42 mg/dL (0.60-1.20) L 05/07/19 06:37 Glucose 114 mg/dL (70-105) H 05/06/19 18:19 277 (280-300) L 05/07/19 06:37 Calcium 8.1 mg/dL (8.6-10.3) L 05/07/19 06:37 AST 10 Units/L (13-39) L 05/07/19 06:37 5.7 g/dL (6.4-8.9) L 05/07/19 06:37 3.1 g/dL (3.5-5.7) L 05/07/19 06:37 Cloudy (Clear) A 05/06/19 17:34 30 mg/dL (Neg-Trace) H 05/06/19 17:34 Trace mg/dL (Negative) H 05/06/19 17:34 Small (Negative) H 05/06/19 17:34 2.0 mg/dL (Normal) H 05/06/19 17:34 Ur Leukocyte Esterase Small (Negative) H 05/06/19 17:34 5-15 per hpf (0-3) H 05/06/19 17:34 30-50 per hpf (0-3) H 05/06/19 17:34 Ur Squamous Epith Cells Many per lpf (None-Few) H 05/06/19 17:34 Many per hpf (None-Few) H 05/06/19 17:34 Ur Culture Indicated? YES (NO) A 05/06/19 17:34 Positive (Negative) A 05/06/19 17:34 All other labs normal. Consult Discharge Plan - Plan Referrals: NONE,PCP [Primary Care Provider] -
[2019-05-08 03:07] LABS: BUN/Creatinine Ratio 10 (6-26); Blood Urea Nitrogen 4 mg/dL (6-20); Calcium 8.7 mg/dL (8.6-10.3); Carbon Dioxide 20 mEq/L (23-29); Chloride 107 mEq/L (98-107); Glucose 77 mg/dL (70-105); Magnesium 1.8 mg/dL (1.6-2.6); Osmolality,Calculated 280 (280-300); Potassium 3.6 mEq/L (3.5-5.1); Sodium 137 mEq/L (136-145); eGFR For African Americans > 60 (> 60); eGFR For Non-African Americans > 60 (> 60)
[2019-05-08 07:30] VITALS: BP 96/60
[2019-05-08] MEDS: cefTRIAXone 1,000 MG in Water for inj. (sterile) 20 ML 10 ML IVP SCH (09:13)
--- NOTE | 2019-05-08 12:52 | Discharge Summary ---
- NOTES TO OUTPATIENT PROVIDER Notes to Outpatient Provider: f/u with OB specialist in one week. Orders not resulted at time of discharge: Pending orders 05/06/19 19:47 Culture,Blood [BC] Stat Date of Encounter: 05/08/19 Time of Encounter: 10:20 - Discharge Diagnosis (1) UTI (urinary tract infection) Priority: Primary Status: Acute Qualifiers: Urinary tract infection type: site unspecified Hematuria presence: without hematuria Qualified Code(s): N39.0 - Urinary tract infection, site not specified (2) Intractable nausea and vomiting Priority: Primary Status: Acute Qualifiers: Vomiting type: unspecified Qualified Code(s): R11.2 - Nausea with vomiting, unspecified (3) Priority: Secondary Status: Acute Qualifiers: Weeks of gestation: 14 weeks Qualified Code(s): Z3A.14 - 14 weeks gestation of (4) Dehydration Priority: Secondary Status: Acute Hospital course: Ms. Sorensen is a 23 year old female who is L2 and 15 weeks of gestation pt presented to ER with intractable nausea and vomiting as well as lower abdominal and back pain. Her UA was abnormal concerning for UTI. She was admitted in the hospital and started on empirical antibiotic IV Rocephin. For intractable nausea and vomiting she was started on symptomatic and supportive care. Patient symptoms improved today and she is tolerating oral intake well. Her urine culture did not grow any bacteria. However since patient does have bacteriuria, Ob recommend to treat her with Keflex for 5 more days. Will dc her home in stable condition today. - Time Spent with Patient Total time spent providing and/or coordinating discharge services: - Discharge Medications Prescriptions: New Cephalexin [Keflex] 500 mg PO TID #15 capsule Continued Metoclopramide [Reglan] 10 mg PO Q6HR PRN #15 tablet PRN Reason: Nausea Pnv No.95/Ferrous Fum/Folic AC [ Caplet] 1 tab PO DAILY Discontinued Nitrofurantoin (BID) [Macrobid] 100 mg PO BID #6 capsule Home Medications: Metoclopramide [Reglan] 10 mg PO Q6HR PRN #15 tablet 05/06/19 [Rx] Pnv No.95/Ferrous Fum/Folic AC [ Caplet] 1 tab PO DAILY 05/06/19 [History] Cephalexin [Keflex] 500 mg PO TID #15 capsule 05/08/19 [Rx] Allergies/Adverse Reactions: Allergy/AdvReac Type Severity Reaction Status Date / Time No Known Allergies Allergy Verified 05/07/19 16:47 Date of admission: 05/06/19 19:56 Primary care physician: PCP NONE Consults: 05/07/19 12:55 Consult to SIDING MECHANIC [CONS] Routine Consulting Provider: NIB FINISHER Isamar Reason for Consult: 15 WOG Time Notified: 12:55 Call Completed: Yes - Constitutional Vitals: Temp Pulse Resp BP Pulse Ox 97.8 F 65 16 96/60 99 05/08/19 07:30 05/08/19 07:30 05/08/19 07:30 05/08/19 07:30 05/08/19 07:30 General appearance: Present: A&O X 3, no acute distress, answers questions appropriately Exam: Gen: Alert, awake, Oriented to time,place and person..Dehydrated.. Dry mucus membranes Chest: Diminished breath sounds B/L, No wheezing, No crackles, No rales Heart: S1S2+ RRR No murmurs Abd: Soft, NT, BS +, No organomegaly Back: No CVA tenderness noticed Ext: No edema, pulses are palpable, No calf tenderness Neuro : No acute focal neuro deficits noticed Skin: No rash. - Patient Status Disposition: Home, Self-Care Condition: Good Overall status at discharge: patient is back to baseline - Discharge Instructions Follow Up With: NONE,PCP [Primary Care Provider] - Mona Mattson CNM [Non-Partnered Physician] - - Diet and Activity Activity: increase activity as tolerated Diet: advance to your usual diet
== END 2019-05-08 14:07 | disposition home or self-care (01) ==
LOC: EMEROOARM 17:03 → 3BNU 17:03 → SUATTDRO 19:56 → 3BNU 21:52
PROVIDERS: ADMIT Internal Medicine; ATTEND Family Medicine

== ENCOUNTER 2019-05-12 22:12 | Inpatient (IN) ==
[2019-05-12 22:53] LABS: Bilirubin,Urine Negative (Negative); Blood,Urine Negative (Negative); Clarity,Urine Cloudy (Clear); Color,Urine Yellow (Yellow); Glucose,Urine (UA) Normal (Normal); Ketones,Urine 40 mg/dL (Negative); Leukocyte Esterase,Urine Trace (Negative); Nitrite,Urine Negative (Negative); Protein,Urine Trace mg/dL (Neg-Trace); Specific Gravity,Urine 1.014 (1.010-1.025); Urobilinogen,Urine Normal (Normal)
[2019-05-12 22:56] LABS: Bacteria,Urine Few per hpf (None-Few); Hyaline Casts,Urine None Seen per lpf (None-Few); Squamous Epithelial Cell,Urine Many per lpf (None-Few)
[2019-05-12] MEDS ORDERED: *HR* FentaNYL (PF) 100 MCG/2 ML VIAL IVP ONE (23:11)
[2019-05-12] MEDS ORDERED: Ondansetron 4 MG/2 ML VIAL IVP STA (23:11)
[2019-05-12 23:12] LABS: Calcium Oxalate Crystals,Urine Present
--- NOTE | 2019-05-12 23:12 | Emergency Department Note ---
Disposition Clinical Impression: Pyelonephritis affecting in second trimester Disposition: Admitted As Inpatient Condition: Fair Time of Disposition: 06:50 General Adult HPI - General Chief complaint: ED Urogenital-Female Stated complaint: lower back pain, recent admit pylo Time Seen by Provider: 05/12/19 23:10 Source: patient Mode of arrival: ambulatory Limitations: no limitations Nursing Notes Reviewed: Yes Vital Signs Reviewed: Yes - History of Present Illness HPI Narrative: 23-year-old female no significant past medical history presenting for 1 day of gradually progressive and worsening bilateral flank pain radiating into her groin and suprapubic area. Patient states that she was recently hospitalized at this facility last Tuesday until Tuesday for pyelonephritis in . Patient states she has proximal was 16 weeks . Patient states she has been on outpatient antibiotics after being released from the hospital but noticed today that her pain was increasing again until she "feels like she did last time she came in." Patient admits to mild abdominal pain, worse in the bilateral flanks, nausea vomiting, she denies any fevers or chills, no chest pain or shortness of breath, there is been no vaginal discharge, no dysuria. Patient has no other concerns or complaints at this time. Onset (ago): day(s) Location: other (The lateral flanks) Radiation: abdomen Pain Severity: moderate, similar to prior episodes Pain Scale: 7 Quality: stabbing, sharp Consistency: Worsening Improves with: rest Worsens with: movement Associated symptoms: Reports: malaise, nausea/vomiting Treatments Prior to Arrival: none - Related Data Home Medications Medication Instructions Recorded Confirmed Pnv No.95/Ferrous Fum/Folic AC 1 tab PO DAILY 05/06/19 05/13/19 [ Caplet] Allergies Allergy/AdvReac Type Severity Reaction Status Date / Time No Known Allergies Allergy Verified 05/07/19 16:47 Review of Systems: *See History of Present Illness for more detail Constitutional: Denies: fever, chills Cardiovascular: Denies: chest pain Respiratory: Denies: dyspnea, cough, hemoptysis Gastrointestinal: Admits to bilateral flank pain radiating into the abdomen, groin and suprapubic region. Admits to nausea vomiting and diarrhea. Denies: Constipation, hematemesis, melena, hematochezia Genitourinary: Denies: hematuria, vaginal discharge Musculoskeletal: Denies: back pain, neck pain Neurological: Denies: headache, weakness, lightheadedness/dizziness, numbness, paresthesias, difficulty with ambulation. Endocrine: Denies: fatigue All systems ED: reviewed and negative except as stated. Review of Systems: As Per HPI Past Medical History - Past Medical History Medical history: Reports: no medical history Surgical history: Reports: no surgical history Psychiatric history: Reports: no psych history TRACK REPAIR LABORER history: Reports: no TRACK REPAIR LABORER history : 3 Para: 2 Ab: 0 - Social History Smoking Status: Never smoker Smokeless Tobacco Status: No Alcohol use: Reports: none Drug use: Reports: none Physical Exam Constitutional: No acute distress, [id number], engaged to conversation, speech is fluid, answers questions appropriately Neuro: GCS 15, no overt focal neurological deficits Head: Atraumatic, normocephalic Eyes: Pupils equal, round and reactive to light, no scleral icterus, no conjunctival injection Neck: Trachea midline without deviation. Anterior neck is supple without swelling. *Chest: Symmetric chest wall rise *Heart: Cardiac rhythm and rate are regular with S1 and S2 , no S3 or S4 appreciated, no murmurs, gallops, rubs, or clicks. *Lungs: Lungs are clear to auscultation bilaterally, without accessory muscle use or prolonged expiratory phase. No wheezes, rhonchi or stridor appreciated. Abdomen: Mild tenderness to palpation over the suprapubic area. Abdomen is flat, soft to palpation, normal bowel sounds. No abdominal bruit auscultated. Non-distended, non-rigid, no organomegaly, no ascites appreciated. No pulsatile mass, no guarding to palpation in all four quadrants, no rebound Back bilateral CVA tenderness Extremities: Normal capillary refill without evidence of pedal edema, joint swelling or erythema. Pulses/motor/sensory intact in all 4 extremities. Psychiatric exam: Patient displays a normal affect and mood for the environment. No overt signs of hallucination. Integumentary: warm, dry, intact, normal color. No rash, cyanosis, diaphoresis, erythema, or pallor - General Limitations: no limitations General appearance: alert, in no apparent distress Course Course Narrative: Abdominal labs to include hepatic panel and lipase and amylase, urinalysis with reflex culture. Treatments: IV fluids, fentanyl and Zofran for management of symptoms. Vital Signs Temperature 97.3 F L 05/12/19 22:24 Pulse Rate 99 05/12/19 22:24 Respiratory Rate 20 05/12/19 22:24 Blood Pressure 103/73 05/12/19 22:24 O2 Sat by Pulse Oximetry 99 05/12/19 22:24 Temperature 98.2 F 05/13/19 02:35 Pulse Rate 74 05/13/19 02:35 Respiratory Rate 16 05/13/19 02:35 Blood Pressure 106/69 05/13/19 02:35 O2 Sat by Pulse Oximetry 98 05/13/19 03:19 Oxygen Delivery Oxygen Delivery Room Air Medical Decision Making - MDM Narrative Medical decision making narrative: Patient laboratory evaluations are consistent for an elevated white count 24.7. Laboratory results are otherwise unremarkable. Patient will be readmitted to hospitalist medicine service for further evaluation and management of pyelonephritis. Patient verbalizes understanding and agreement with this plan. Patient is hemodynamically stable time of admission. Dr. Dailey accepting admission. - Lab Data Lab results reviewed: Yes I reviewed the patient's lab results. Result diagrams: 05/13/19 03:18 05/13/19 03:18 Lab Results 05/12/19 05/12/19 05/12/19 Range/Units 22:42 23:14 23:14 WBC 24.7 H D (4.3-11.1) K/mcL RBC 4.83 (3.82-4.97) M/mcL Hgb 13.8 D (11.5-15.4) g/dL Hct 41.1 (35.3-44.9) % MCV 85.1 (83.0-100.0) fL MCH 28.6 (28.0-33.3) pg MCHC 33.6 (31.6-35.5) g/dL RDW 12.9 (11.5-14.5) % Plt Count 288 (140-400) K/mcL MPV 11.0 (9.4-12.4) fL Immature Gran % 0.6 (0-4) % Seg Neutrophils % 86.3 % Lymphocytes % 9.6 % Monocytes % 3.0 % Eosinophils % 0.3 % Basophils % 0.2 % Neutrophils # 21.3 H (1.6-8.9) K/mcL Lymphocytes # 2.4 (0.6-4.6) K/mcL Monocytes # 0.7 (0.0-1.3) K/mcL Eosinophils # 0.1 (0.0-0.6) K/mcL Basophils # 0.1 (0.0-0.2) K/mcL Platelet Estimate Normal (Normal) Sodium 132 L (136-145) mEq/L Potassium 3.6 (3.5-5.1) mEq/L Chloride 103 (98-107) mEq/L Carbon Dioxide 24 (23-29) mEq/L BUN 6 (6-20) mg/dL Creatinine 0.55 L (0.60-1.20) mg/dL Est GFR ( Amer) > 60 (> 60) Est GFR (Non-Af Amer) > 60 (> 60) BUN/Creatinine Ratio 11 (6-26) Glucose 96 (70-105) mg/dL Calculated Osmolality 271 L (280-300) Calcium 9.5 (8.6-10.3) mg/dL Total Bilirubin 0.4 (0.3-1.0) mg/dL Direct Bilirubin 0.1 (0.0-0.2) mg/dL Indirect Bilirubin 0.3 (0.0-1.2) mg/dL AST 11 L (13-39) Units/L ALT 11 (7-52) Units/L Alkaline Phosphatase 68 (34-104) Units/L Serum Total Protein 7.3 (6.4-8.9) g/dL Albumin 3.9 (3.5-5.7) g/dL Globulin 3.4 (2.4-3.5) g/dL Albumin/Globulin Ratio 1.1 (1.1-2.2) Amylase 33 (29-103) Units/L Lipase 15 (11-82) Units/L Urine Color Yellow (Yellow) Urine Clarity Cloudy A (Clear) Urine pH 7.0 (5.0-8.0) pH Units Ur Specific [place] 1.014 (1.010-1.025) Urine Protein Trace (Neg-Trace) mg/dL Urine Glucose (UA) Normal (Normal) mg/dL Urine Ketones 40 H (Negative) mg/dL Urine Blood Negative (Negative) Urine Nitrite Negative (Negative) Urine Bilirubin Negative (Negative) Urine Urobilinogen Normal (Normal) mg/dL Ur Leukocyte Esterase Trace H (Negative) Urine Microscopic WBC 5-15 H (0-3) per hpf Ur Squamous Epith Cells Many H (None-Few) per lpf Calcium Oxalate Crystal Present Amorphous Sediment Moderate H (Few) Urine Bacteria Few (None-Few) per hpf Hyaline Casts None Seen (None-Few) per lpf Ur Culture Indicated? YES A (NO) - Radiology Data Radiology results reviewed: Yes I reviewed the patient's radiology results.
[2019-05-12 23:13] LABS: Amorphous Sediment,Urine Moderate (Few)
[2019-05-12 23:46] LABS: Alanine Aminotransferase 11 Units/L (7-52); Albumin 3.9 g/dL (3.5-5.7); Albumin/Globulin Ratio 1.1 (1.1-2.2); Alkaline Phosphatase 68 Units/L (34-104); Amylase 33 Units/L (29-103); Aspartate Amino Transferase 11 Units/L (13-39); BUN/Creatinine Ratio 11 (6-26); Bilirubin,Direct 0.1 mg/dL (0.0-0.2); Bilirubin,Indirect 0.3 mg/dL (0.0-1.2); Bilirubin,Total 0.4 mg/dL (0.3-1.0); Blood Urea Nitrogen 6 mg/dL (6-20); Calcium 9.5 mg/dL (8.6-10.3); Carbon Dioxide 24 mEq/L (23-29); Chloride 103 mEq/L (98-107); Globulin 3.4 g/dL (2.4-3.5); Glucose 96 mg/dL (70-105); Lipase 15 Units/L (11-82); Osmolality,Calculated 271 (280-300); Potassium 3.6 mEq/L (3.5-5.1); Sodium 132 mEq/L (136-145); Total Protein 7.3 g/dL (6.4-8.9); eGFR For African Americans > 60 (> 60); eGFR For Non-African Americans > 60 (> 60)
[2019-05-13 00:09] LABS: Basophils # 0.1 K/mcL (0.0-0.2); Basophils % 0.2 %; Eosinophils # 0.1 K/mcL (0.0-0.6); Eosinophils % 0.3 %; Hematocrit 41.1 % (35.3-44.9); Immature Granulocytes % 0.6 % (0-4); Lymphocytes # 2.4 K/mcL (0.6-4.6); Lymphocytes % 9.6 %; Mean Corpuscular HGB Conc 33.6 g/dL (31.6-35.5); Mean Corpuscular Hemoglobin 28.6 pg (28.0-33.3); Mean Corpuscular Volume 85.1 fL (83.0-100.0); Neutrophils # 21.3 K/mcL (1.6-8.9); Platelet Count 288 K/mcL (140-400); Red Blood Count 4.83 M/mcL (3.82-4.97); Red Cell Distribution Width 12.9 % (11.5-14.5); Segmented Neutrophils % 86.3 %
[2019-05-13 00:16] LABS: Hemoglobin 13.8 g/dL (11.5-15.4); Monocytes # 0.7 K/mcL (0.0-1.3); White Blood Count 24.7 K/mcL (4.3-11.1)
[2019-05-13 00:38] LABS: Platelet Estimate Normal (Normal)
--- NOTE | 2019-05-13 01:14 | Emergency Department Note ---
Disposition Clinical Impression: Pyelonephritis affecting in second trimester Disposition: Admitted As Inpatient Condition: Fair Time of Disposition: 02:01 General Adult HPI - General Chief complaint: ED Urogenital-Female Stated complaint: lower back pain, recent admit pylo Time Seen by Provider: 05/12/19 23:10 Source: patient Mode of arrival: ambulatory Limitations: no limitations Nursing Notes Reviewed: Yes Vital Signs Reviewed: Yes - History of Present Illness Location: other (The lateral flanks) Pain Scale: 4 Quality: stabbing, sharp Improves with: rest Worsens with: movement Associated symptoms: Reports: malaise, nausea/vomiting Treatments Prior to Arrival: none - Related Data Home Medications Medication Instructions Recorded Confirmed Pnv No.95/Ferrous Fum/Folic AC 1 tab PO DAILY 05/06/19 05/07/19 [ Caplet] Previous Rx's Medication Instructions Recorded Metoclopramide [Reglan] 10 mg PO Q6HR PRN #15 tablet 05/06/19 Cephalexin [Keflex] 500 mg PO TID #15 capsule 05/08/19 Allergies Allergy/AdvReac Type Severity Reaction Status Date / Time No Known Allergies Allergy Verified 05/07/19 16:47 Past Medical History - Past Medical History Medical history: Reports: no medical history Surgical history: Reports: no surgical history Psychiatric history: Reports: no psych history TALENT ACQUISITION LEAD history: Reports: no TALENT ACQUISITION LEAD history : 3 Para: 2 Ab: 0 - Social History Smoking Status: Never smoker Smokeless Tobacco Status: No Alcohol use: Reports: none Drug use: Reports: none Physical Exam - General Limitations: no limitations General appearance: alert, in no apparent distress Course Vital Signs Temperature 97.3 F L 05/12/19 22:24 Pulse Rate 99 05/12/19 22:24 Respiratory Rate 05/12/19 22:24 Blood Pressure 103/73 05/12/19 22:24 O2 Sat by Pulse Oximetry 99 05/12/19 22:24 Temperature 97.3 F L 05/12/19 22:24 Pulse Rate 99 05/12/19 23:53 Respiratory Rate 05/12/19 23:53 Blood Pressure 103/73 05/12/19 23:53 O2 Sat by Pulse Oximetry 99 05/12/19 23:53 Oxygen Delivery Oxygen Delivery Room Air Medical Decision Making - Medical Records Medical records reviewed: Yes I reviewed the patient's medical records. - Lab Data Lab results reviewed: Yes I reviewed the patient's lab results. Result diagrams: 05/12/19 23:14 05/12/19 23:14 Lab Results 05/12/19 05/12/19 05/12/19 Range/Units 22:42 23:14 23:14 WBC 24.7 H D (4.3-11.1) K/mcL RBC 4.83 (3.82-4.97) M/mcL Hgb 13.8 D (11.5-15.4) g/dL Hct 41.1 (35.3-44.9) % MCV 85.1 (83.0-100.0) fL MCH 28.6 (28.0-33.3) pg MCHC 33.6 (31.6-35.5) g/dL RDW 12.9 (11.5-14.5) % Plt Count 288 (140-400) K/mcL MPV 11.0 (9.4-12.4) fL Immature Gran % 0.6 (0-4) % Seg Neutrophils % 86.3 % Lymphocytes % 9.6 % Monocytes % 3.0 % Eosinophils % 0.3 % Basophils % 0.2 % Neutrophils # 21.3 H (1.6-8.9) K/mcL Lymphocytes # 2.4 (0.6-4.6) K/mcL Monocytes # 0.7 (0.0-1.3) K/mcL Eosinophils # 0.1 (0.0-0.6) K/mcL Basophils # 0.1 (0.0-0.2) K/mcL Platelet Estimate Normal (Normal) Sodium 132 L (136-145) mEq/L Potassium 3.6 (3.5-5.1) mEq/L Chloride 103 (98-107) mEq/L Carbon Dioxide 24 (23-29) mEq/L BUN 6 (6-20) mg/dL Creatinine 0.55 L (0.60-1.20) mg/dL Est GFR ( Amer) > 60 (> 60) Est GFR (Non-Af Amer) > 60 (> 60) BUN/Creatinine Ratio 11 (6-26) Glucose 96 (70-105) mg/dL Calculated Osmolality 271 L (280-300) Calcium 9.5 (8.6-10.3) mg/dL Total Bilirubin 0.4 (0.3-1.0) mg/dL Direct Bilirubin 0.1 (0.0-0.2) mg/dL Indirect Bilirubin 0.3 (0.0-1.2) mg/dL AST 11 L (13-39) Units/L ALT 11 (7-52) Units/L Alkaline Phosphatase 68 (34-104) Units/L Serum Total Protein 7.3 (6.4-8.9) g/dL Albumin 3.9 (3.5-5.7) g/dL Globulin 3.4 (2.4-3.5) g/dL Albumin/Globulin Ratio 1.1 (1.1-2.2) Amylase 33 (29-103) Units/L Lipase 15 (11-82) Units/L Urine Color Yellow (Yellow) Urine Clarity Cloudy A (Clear) Urine pH 7.0 (5.0-8.0) pH Units Ur Specific [place] 1.014 (1.010-1.025) Urine Protein Trace (Neg-Trace) mg/dL Urine Glucose (UA) Normal (Normal) mg/dL Urine Ketones 40 H (Negative) mg/dL Urine Blood Negative (Negative) Urine Nitrite Negative (Negative) Urine Bilirubin Negative (Negative) Urine Urobilinogen Normal (Normal) mg/dL Ur Leukocyte Esterase Trace H (Negative) Urine Microscopic WBC 5-15 H (0-3) per hpf Ur Squamous Epith Cells Many H (None-Few) per lpf Calcium Oxalate Crystal Present Amorphous Sediment Moderate H (Few) Urine Bacteria Few (None-Few) per hpf Hyaline Casts None Seen (None-Few) per lpf Ur Culture Indicated? YES A (NO) Attestation Statement - Attestation Attestation: I, Mikey Gaytan MD, personally evaluated this patient and discussed their management with the resident physician. I reviewed the resident's note and agree with the documented findings, medical decision making, and plan of care. 23-year-old female who is partially 16 weeks presents to the emergency department complaining of increased bilateral flank pain associated with nausea and vomiting. Patient was admitted to the hospital 6 days ago with pyelonephritis. She was discharged 4 days ago. She is still on outpatient antibiotics and seemed better however the past few days she has not felt well and today she developed increased pain with the nausea and vomiting and feels just like she did when she came in last week with the pyelonephritis. On examination patient is a well-developed well-nourished well-appearing female in no acute distress. She is alert and oriented 3. There is no cyanosis or diaphoresis. Breath sounds are clear and equal bilaterally. Heart regular rate and rhythm. Abdomen is soft with normal bowel sounds. Nontender to palpation. There is mild bilateral CVA tenderness. Labs reviewed. WBC 24.7, 5 days ago was 8.0. The hospitalist, Dr. Dailey, was consulted and accepted admission of the patient.
[2019-05-13] MEDS ORDERED: Ondansetron 4 MG/2 ML VIAL IVP PRN (02:18)
[2019-05-13] MEDS ORDERED: Naloxone 0.4 MG/ML INJ IVP PRN (02:18)
--- NOTE | 2019-05-13 02:39 | Internal Med History&Physical ---
Date of Encounter: 05/13/19 Time of Encounter: 02:28 Internal Medicine - H&P: HPI Chief complaint: Abdominal pain History of present illness: Ms. Sorensen is a 23 year old female L2 and 15 weeks of gestation who presented to ER with bilateral flank and suprapubic pain. Of note, patient was recently admitted for treatment of intractable nausea and vomiting and UTI. U rine culture did not grow any bacteria. However given the presence of bacteriuria, OB recommend to continue antibiotic treatment with Keflex for 5 more days. Patient reports that she has been taking her antibiotics but began having increasing abdominal and flank pain today. Patient denies any fever but reports subjective chills. On arrival patient was afebrile, mildly tachycardic with a heart rate of 99 and blood pressure of 103/73. Laboratory workup was notable for a leukocytosis of 24.7 which has increased from 8.0 obtained on the . UA showed trace leukocyte esterase with few urine bacteria. Patient again will be started on ceftriaxone and admitted for possible complicated UTI w ith pyelonephritis. Past Med Surg Social Fam HX - Past Medical History Medical history: no medical history Additional medical history: denies seizures, last 1 year ago Psychiatric history: no psych history - Past Surgical History Surgical History: no surgical history - Social History Smoking Status: Never smoker Smokeless Tobacco Status: No Alcohol use: none Drug use: none - Family History Mother Family Member Ethnicity: Non- Twin of Family Member: Yes, Fraternal Living Status: Still Living Hx Family Cardiac Disorders: No Hx Family Respiratory Disorders: No Hx Family Cancer: No Hx Family GI Disorders: No Hx Family Endocrine Disorder: No Hx Family Neuromuscular Disorders: No Hx Family Neurologic Disorders: No Hx Family HEENT Disorders: No Hx Family Autoimmune Disorders: No Internal Medicine - H&P: Meds Pnv No.95/Ferrous Fum/Folic AC [ Caplet] 1 tab PO DAILY 05/06/19 [History] Allergy/AdvReac Type Severity Reaction Status Date / Time No Known Allergies Allergy Verified 05/13/19 15:00 All Systems PM: A 10-system review of systems was performed and is negative for pertinent findings except as documented above in the HPI. - Constitutional Constitutional: no chills, no fever(s), no night sweats - EENT Eyes: no change in vision, no discharge, no pain, no photophobia Ears: no ear discharge, no ear pain, no tinnitus Nose, mouth and throat: no dysphagia, no nasal discharge, no neck pain, no sore throat - Cardiovascular Cardiovascular ROS IM: no chest pain, no diaphoresis, no dyspnea, no lighthe adedness, no palpitations, no syncope - Respiratory Respiratory: no cough, no dyspnea, no wheezing, no excessive phlegm production - Gastrointestinal Gastrointestinal: no abdominal pain, no diarrhea, no hematemesis, no hem atochezia, no melena, no nausea, no vomiting - Genitourinary Genitourinary: no change in urinary stream, no dysuria, no flank pain, no hematuria - Musculoskeletal Musculoskeletal ROS IM: no numbness, no tingling - Integumentary Integumentary IM: no rash, no unusual bruising - Neurological Neurological ROS: no confusion, no convulsions, no focal weakness, no numbness, no tingling, no tremor(s) - Hematologic/Lymphatic Hematologic/Lymphatic: no easy bruising - Constitutional Vitals: Temp Pulse Resp BP Pulse Ox 97.3 F L 80 14 99/68 99 05/12/19 22:24 05/13/19 02:13 05/13/19 02:13 05/13/19 02:13 05/13/19 02:13 Exam: General: Alert and oriented 3 lying in bed in no acute distress Skin:Normal color, no rash, no lesions. HEENT:EOM, pupils equal, round and reactive. Cardiovascular:Normal S1 & S2, no rubs, murmurs or gallops. No JVD. Pulse regular. Lungs:Normal breath sounds, no wheezes or crackles. Abdomen:Soft, non-tender, no rigidity. Extremities:No deformity, no edema or tenderness, no joint swelling or clubbing. Neurological:Normal cognition and motor skills. Pulses:Carotid and radial pulses normal +2. Rest of the physical exam is non contributory Internal Med - H&P Results - Labs CBC & Chem 7: 05/13/19 03:18 05/13/19 03:18 Labs: Short CBC 05/12/19 Range/Units 23:14 WBC 24.7 H D (4.3-11.1) K/mcL Hgb 13.8 D (11.5-15.4) g/dL Hct 41.1 (35.3-44.9) % Plt Count 288 (140-400) K/mcL Neutrophils # 21.3 H (1.6-8.9) K/mcL BMP 05/12/19 23:14 Sodium 132 L Potassium 3.6 Chloride 103 Carbon Dioxide 24 BUN 6 Creatinine 0.55 L Glucose 96 Calcium 9.5 Liver Function 05/12/19 Range/Units 23:14 Total Bilirubin 0.4 (0.3-1.0) mg/dL Direct Bilirubin 0.1 (0.0-0.2) mg/dL AST 11 L (13-39) Units/L ALT 11 (7-52) Units/L Alkaline Phosphatase 68 (34-104) Units/L Albumin 3.9 (3.5-5.7) g/dL Urine 05/12/19 Range/Units 22:42 Urine Color Yellow (Yellow) Urine Clarity Cloudy A (Clear) Urine pH 7.0 (5.0-8.0) pH Units Ur Specific [place] 1.014 (1.010-1.025) Urine Protein Trace (Neg-Trace) mg/dL Urine Glucose (UA) Normal (Normal) mg/dL - Assessment and Plan (1) Complicated UTI (urinary tract infection) Current Visit: Yes Status: Acute Assessment and plan: Patient presenting with bilateral flank and abdominal pain, recurrence of her previous symptoms in the setting of significant leukocytosis. No fever, dysuria. Concern for pyelonephritis. UA shows trace leukocyte esterase with few urine bacteria. Given the recurrence of her symptoms and there is a concern for a possible complicating pyelonephritis. -We will start patient on ceftriaxone. -IV fluids -We will obtain urine and blood cultures -We will obtain formal ultrasound to evaluate for any evidence of abscess/stones. -Consider ASSOCIATE CREATIVE DIRECTOR consult (2) 15 weeks gestation of Current Visit: No Status: Acute Assessment and plan: ED ultrasound assessment of the fetus demonstrated good heart rate and activity. Follow-up with ASSOCIATE CREATIVE DIRECTOR upon discharge. (3) Sepsis Current Visit: Yes Status: Acute Assessment and plan: Patient meets 2 of 4 SIRS criteria given tachycardia and leukocytosis. Patient currently hemodynamically stable. No fever. -Continue aggressive fluid hydration -Continue antibiotics -Follow up urine and blood cultures. Qualifiers: Sepsis type: sepsis due to unspecified organism Qualified Code(s): A41.9 - Sepsis, unspecified organism (4) DVT prophylaxis Current Visit: No Status: Acute Assessment and plan: Sequential compression devices - Time Spent With Patient Total time spent is greater than 50% in coordination of care (as documented) at patient's floor/unit and/or counseling patient:
[2019-05-13] MEDS: cefTRIAXone 1,000 MG in Water for inj. (sterile) 10 ML IVP SCH (03:16)
[2019-05-13] MEDS: 0.9 % Sodium Chloride 1,000 ML IVC SCH ×2 (03:17→09:54)
[2019-05-13 03:38] LABS: Hematocrit 37.2 % (35.3-44.9); Mean Corpuscular HGB Conc 34.9 g/dL (31.6-35.5); Mean Corpuscular Hemoglobin 29.6 pg (28.0-33.3); Mean Corpuscular Volume 84.7 fL (83.0-100.0); Mean Platelet Volume 10.7 fL (9.4-12.4); Platelet Count 248 K/mcL (140-400); Red Blood Count 4.39 M/mcL (3.82-4.97); Red Cell Distribution Width 12.9 % (11.5-14.5); White Blood Count 21.1 K/mcL (4.3-11.1)
[2019-05-13 03:46] LABS: Alanine Aminotransferase 10 Units/L (7-52); Albumin 3.6 g/dL (3.5-5.7); Albumin/Globulin Ratio 1.2 (1.1-2.2); Alkaline Phosphatase 62 Units/L (34-104); Aspartate Amino Transferase 9 Units/L (13-39); BUN/Creatinine Ratio 11 (6-26); Bilirubin,Total 0.5 mg/dL (0.3-1.0); Blood Urea Nitrogen 5 mg/dL (6-20); Calcium 9.1 mg/dL (8.6-10.3); Carbon Dioxide 21 mEq/L (23-29); Chloride 104 mEq/L (98-107); Glucose 97 mg/dL (70-105); Osmolality,Calculated 271 (280-300); Potassium 3.6 mEq/L (3.5-5.1); Sodium 132 mEq/L (136-145); Total Protein 6.6 g/dL (6.4-8.9); eGFR For African Americans > 60 (> 60); eGFR For Non-African Americans > 60 (> 60)
--- NOTE | 2019-05-13 08:01 | Event Note ---
Date of Encounter: 05/13/19 Time of Encounter: 12:06 Ms Sorensen was admitted earlier today with recurrent urinary symptoms and leukocytosis. She is currently feeling a little better but not hungry. No fever or chills at this time. No abd pain. Exam Resting comfortably Not tachycardic No wheeze Plan Continue IV hydration and IV Rocephin Supportive care.
[2019-05-13] MEDS ORDERED: Acetaminophen 325 MG TABLET PO PRN (14:43)
[2019-05-14] MEDS: cefTRIAXone 1,000 MG in Water for inj. (sterile) 10 ML IVP SCH (02:52)
[2019-05-14 05:09] LABS: Hematocrit 36.4 % (35.3-44.9); Hemoglobin 12.5 g/dL (11.5-15.4); Mean Corpuscular HGB Conc 34.3 g/dL (31.6-35.5); Mean Corpuscular Hemoglobin 29.6 pg (28.0-33.3); Mean Corpuscular Volume 86.3 fL (83.0-100.0); Mean Platelet Volume 10.8 fL (9.4-12.4); Platelet Count 263 K/mcL (140-400); Red Blood Count 4.22 M/mcL (3.82-4.97); Red Cell Distribution Width 13.2 % (11.5-14.5); White Blood Count 11.9 K/mcL (4.3-11.1)
[2019-05-14 05:28] LABS: BUN/Creatinine Ratio 11 (6-26); Blood Urea Nitrogen 5 mg/dL (6-20); Calcium 8.8 mg/dL (8.6-10.3); Carbon Dioxide 22 mEq/L (23-29); Chloride 105 mEq/L (98-107); Glucose 86 mg/dL (70-105); Magnesium 1.8 mg/dL (1.6-2.6); Osmolality,Calculated 279 (280-300); Potassium 3.7 mEq/L (3.5-5.1); Sodium 136 mEq/L (136-145); eGFR For African Americans > 60 (> 60); eGFR For Non-African Americans > 60 (> 60)
[2019-05-14] MEDS: Prenatal Vit/FA 1 EACH TABLET PO SCH (07:59)
--- NOTE | 2019-05-14 14:42 | OB/GYN Consult Note ---
Date of Encounter: 05/14/19 Time of Encounter: 14:41 Assessment and Plan (1) 16 weeks gestation of Current Visit: Yes Status: Acute FHR 160 bpm via doppler Routine care with [facility] at [place] [facility] ATTENDANT. Next appointment on 05/17/19 (2) Pyelonephritis affecting in second trimester Current Visit: Yes Status: Acute Plan of care discussed with Dr. York - Patient appears stable and has been afebrile for >48 hours. - Appropriate FHT and stable - Recommend monthly urine cultures throughout . - From OB standpoint, patient may be discharged home with follow up on as scheduled. - Due to recurrence of UTI symptoms after last admission, suggest sending home on oral antibiotic therapy with Augmentin 875 mg bid x 7 days. History of Present Illness Consult date: 05/14/19 Requesting physician: Josafat Sparks Reason for consult: other (pyelonephritis in ) Chief complaint: Bilateral flank and suprapubic pain History of present illness: Copied from hospitalist H&P on admission 05/12/19: Ms. Sorensen is a 23 year old female at 16w2d who presented to ER with bilateral flank and suprapubic pain. Of note, patient was recently admitted for treatment of intractable nausea and vomiting and UTI. Urine culture did not grow any bacteria. However given the presence of bacteriuria, OB recommend to continue antibiotic treatment with Keflex for 5 more days. Patient reports that she has been taking her antibiotics but began having increasing abdominal and flank pain today. Patient denies any fever but reports subjective chills. On arrival patient was afebrile, mildly tachycardic with a heart rate of 99 and blood pressure of 103/73. Laboratory workup was notable for a leukocytosis of 24.7 which has increased from 8.0 obtained on the . UA showed trace leukocyte esterase with few urine bacteria. Past Med Surg Social Fam HX - Past Medical History Medical history: no medical history Additional medical history: denies seizures, last 1 year ago Psychiatric history: no psych history - Past Surgical History Surgical History: no surgical history - Social History Smoking Status: Never smoker Smokeless Tobacco Status: No Alcohol use: none Drug use: none Occupational status: employed Current living situation: Home - Independent, With Family Activity Level: Independent ambulation Recent Out of Country Travel Within the Last 8 Weeks: No Exposure or Possible Exposure to Illness During Travel: No - Family History Mother Family Member Ethnicity: Non- Twin of Family Member: Yes, Fraternal Living Status: Still Living Hx Family Cardiac Disorders: No Hx Family Respiratory Disorders: No Hx Family Cancer: No Hx Family GI Disorders: No Hx Family Endocrine Disorder: No Hx Family Neuromuscular Disorders: No Hx Family Neurologic Disorders: No Hx Family HEENT Disorders: No Hx Family Autoimmune Disorders: No Medications and Allergies Pnv No.95/Ferrous Fum/Folic AC [ Caplet] 1 tab PO DAILY 05/06/19 [History] Allergy/AdvReac Type Severity Reaction Status Date / Time No Known Allergies Allergy Verified 05/13/19 15:00 Review of Systems Cardiovascular: no chest pain, no palpitations Respiratory: no cough, no dyspnea Gastrointestinal: no abdominal pain, no change in bowel habits Menstruation: other () Exam - Vital Signs Vital signs: Initial Vital Signs Temp Pulse Resp BP Pulse Ox 97.3 F L 99 20 103/73 99 05/12/19 22:24 05/12/19 22:24 05/12/19 22:24 05/12/19 22:24 05/12/19 22:24 - Constitutional Constitutional: well developed, well nourished, no acute distress, average body habitus - HEENT HEENT: Normocephaly - Lungs Respiratory exam: CTAB - Cardiovascular Cardiovascular exam: RRR, +S1, +S2 - Abdomen Abdomen: Present: bowel sounds normal, gravid, non tender - Extremities Extremities exam: full ROM, normal capillary refill, normal inspection Results Result Diagrams: 05/14/19 04:14 05/14/19 04:14 Abnormal lab results WBC 11.9 K/mcL (4.3-11.1) H 05/14/19 04:14 21.3 K/mcL (1.6-8.9) H 05/12/19 23:14 Sodium 132 mEq/L (136-145) L 05/13/19 03:18 Carbon Dioxide 22 mEq/L (23-29) L 05/14/19 04:14 BUN 5 mg/dL (6-20) L 05/14/19 04:14 0.47 mg/dL (0.60-1.20) L 05/14/19 04:14 279 (280-300) L 05/14/19 04:14 AST 9 Units/L (13-39) L 05/13/19 03:18 Beta HCG, Quant 51685 mIU/mL (Less than 5) H 05/13/19 03:18 Cloudy (Clear) A 05/12/19 22:42 40 mg/dL (Negative) H 05/12/19 22:42 Ur Leukocyte Esterase Trace (Negative) H 05/12/19 22:42 5-15 per hpf (0-3) H 05/12/19 22:42 Ur Squamous Epith Cells Many per lpf (None-Few) H 05/12/19 22:42 Amorphous Sediment Moderate (Few) H 05/12/19 22:42 Ur Culture Indicated? YES (NO) A 05/12/19 22:42 All other labs normal. Consult Discharge Plan - Plan Referrals: NONE,PCP [Primary Care Provider] -
--- NOTE | 2019-05-14 15:33 | Internal Med Progress Note ---
Hospitalist Progress Note - Encounter Date of Encounter: 05/14/19 Time of Encounter: 09:00 - Subjective Interval History: When seen today patient is resting comfortably in her bed. She denied any back pain or abdominal pain. Denied any fever. Denied any nausea or vomiting. - Exam Vitals: Temp Pulse Resp BP Pulse Ox 98.2 F 78 16 107/69 97 05/14/19 14:41 05/14/19 14:41 05/14/19 14:41 05/14/19 14:41 05/14/19 14:41 Exam: GENERAL APPEARANCE: Well developed, well nourished, alert and cooperative, and appears to be in no acute distress. HEAD: normocephalic. EYES: vision is grossly intact. EARS: hearing grossly intact. NOSE: No nasal discharge. THROAT: Oral cavity and pharynx normal. No inflammation, swelling, exudate, or lesions. Teeth and gingiva in good general condition. NECK: Neck supple, non-tender without lymphadenopathy, masses or thyromegaly. CARDIAC: Normal S1 and S2. No S3, S4 or murmurs. Rhythm is regular. There is no peripheral edema, cyanosis or pallor. Extremities are warm and well perfused. Capillary refill is less than 2 seconds. No carotid bruits. LUNGS: Clear to auscultation and percussion without rales, rhonchi, wheezing or diminished breath sounds. ABDOMEN: Positive bowel sounds. Soft, nondistended, nontender. No guarding or rebound. No masses. Gravid. MUSKULOSKELETAL: Adequately aligned spine. ROM intact spine and extremities. No joint erythema or tenderness. Normal muscular development. Normal gait. BACK: Examination of the spine reveals normal gait and posture, no spinal deformity, symmetry of spinal muscles, without tenderness, decreased range of motion or muscular spasm. No CVA tenderness b/l. EXTREMITIES: No significant deformity or joint abnormality. No edema. Peripheral pulses intact. No varicosities. LOWER EXTREMITY: Examination of both feet reveals all toes to be normal in size and symmetry, normal range of motion, normal sensation with distal capillary filling of less than 2 seconds without tenderness, swelling, discoloration, nodules, weakness or deformity; examination of both ankles, knees, legs, and hips reveals normal range of motion, normal sensation without tenderness, swelling, discoloration, crepitus, weakness or deformity. SKIN: Skin normal color, texture and turgor with no lesions or eruptions. PSYCHIATRIC: The mental examination revealed the patient was oriented to person, place, and time. - Assessment and Plan (1) Complicated UTI (urinary tract infection) Current Visit: Yes Status: Acute Assessment and Plan: Patient presented with bilateral flank pain and abdominal pain in the setting of leukocytosis. There was concern for pyelonephritis. UA showed positive leukocyte Estrace. Renal ultrasound showed no evidence of obstructive uropathy. No evidence of perinephric abscess or fluid. She was subsequently started on Rocephin IV. White blood cell count has been downtrending (24.7 on admission; today at 11.9). Urine culture was negative. Blood cultures are still pending. Plan: - C/W Rocephin IV day #2. - Plan for oral antibiotic therapy with Augmentin 875 mg bid x 7 days on discharge. - C/W IVF. - F/U with Blood Cx. (2) 16 weeks gestation of Current Visit: Yes Status: Acute Assessment and Plan: at 16w2d. DIRECT SERVICE PROFESSIONAL was consulted for evaluation. Appropriate FHT and stable. Plan: - Patient to f/u with OB clinic thius in outpatient. (3) Sepsis Current Visit: Yes Status: Resolved Assessment and Plan: Patient met 2 of 4 SIRS criteria on admission with tachycardia and leukocytosis. Currently hemodynamically stable. No fever. Plan: - C/W antibiotics. - Encourage PO intake. - Blood cultures pending. - Continue to monitor. DVT Prophylaxis: - SCDs. - Time Spent with Patient Total time spent is greater than 50% in coordination of care (as documented) at patient's floor/unit and/or counseling patient: Internal Medicine: Result - Labs CBC & Chem 7: 05/14/19 04:14 05/14/19 04:14 Labs: Short CBC 05/14/19 Range/Units 04:14 WBC 11.9 H (4.3-11.1) K/mcL Hgb 12.5 (11.5-15.4) g/dL Hct 36.4 (35.3-44.9) % Plt Count 263 (140-400) K/mcL BMP 05/14/19 04:14 Sodium 136 Potassium 3.7 Chloride 105 Carbon Dioxide 22 L BUN 5 L Creatinine 0.47 L Glucose 86 Calcium 8.8 - Impressions Impressions Retroperitoneum Ultrasound 05/14/19 09:00 IMPRESSION: 1. No evidence of obstructive uropathy. No evidence of perinephric abscess or fluid. 2. Bilateral symmetric increased echogenicity of the medullary pyramids. Differential is broad and includes medullary calcifications which can be caused by a number of etiologies, including hyperparathyroidism and renal tubular acidosis. Consider follow-up renal ultrasound . D/ / 05/14/2019 09:43:51 Jhon Quigley MD / [facility] Interpreting Provider: Jhon Quigley MD Consult Discharge Plan - Plan Referrals: NONE,PCP [Primary Care Provider] - Diamond Ortiz CNM [Advanced Practice Nurse] - 05/17/19 1:30 pm (3) Sepsis Qualifiers: Sepsis type: sepsis due to unspecified organism Qualified Code(s): A41.9 - Sepsis, unspecified organism
[2019-05-15] MEDS: cefTRIAXone 1,000 MG in Water for inj. (sterile) 10 ML IVP SCH (02:51)
[2019-05-15 02:57] LABS: Hematocrit 39.2 % (35.3-44.9); Hemoglobin 13.7 g/dL (11.5-15.4); Mean Corpuscular HGB Conc 34.9 g/dL (31.6-35.5); Mean Corpuscular Hemoglobin 29.8 pg (28.0-33.3); Mean Corpuscular Volume 85.2 fL (83.0-100.0); Mean Platelet Volume 10.5 fL (9.4-12.4); Platelet Count 289 K/mcL (140-400); Red Cell Distribution Width 13.1 % (11.5-14.5); White Blood Count 13.4 K/mcL (4.3-11.1)
[2019-05-15 03:14] LABS: BUN/Creatinine Ratio 13 (6-26); Blood Urea Nitrogen 6 mg/dL (6-20); Calcium 9.1 mg/dL (8.6-10.3); Carbon Dioxide 23 mEq/L (23-29); Chloride 105 mEq/L (98-107); Glucose 76 mg/dL (70-105); Osmolality,Calculated 278 (280-300); Potassium 3.9 mEq/L (3.5-5.1); Sodium 136 mEq/L (136-145); eGFR For African Americans > 60 (> 60); eGFR For Non-African Americans > 60 (> 60)
[2019-05-15 07:16] VITALS: BP 97/60
[2019-05-15] MEDS: Prenatal Vit/FA 1 EACH TABLET PO SCH (08:56)
--- NOTE | 2019-05-15 09:47 | Discharge Summary ---
Orders not resulted at time of discharge: Pending orders 05/13/19 03:18 Culture,Blood [BC] Stat Date of Encounter: 05/15/19 Time of Encounter: 09:30 - Discharge Diagnosis (1) Complicated UTI (urinary tract infection) Priority: Primary Status: Acute (2) 16 weeks gestation of Priority: Secondary Status: Acute (3) Sepsis Priority: Primary Status: Resolved Qualifiers: Sepsis type: sepsis due to unspecified organism Qualified Code(s): A41.9 - Sepsis, unspecified organism Hospital course: Ms. Sorensen is a 23 year old female 16 weeks gestation that presented on 05/12/19 for bilateral flank and suprapubic pain. patient was recently admitted for treatment of intractable nausea and vomiting and UTI. Urine culture did not grow any bacteria. However given the presence of bacteriuria, OB recommend to continue antibiotic treatment with Keflex for 5 more days. Patient reports that she has been taking her antibiotics but began having increasing abdominal and flank pain on admission. On arrival patient was afebrile, mildly tachycardic with a heart rate of 99 and blood pressure of 103/73. Laboratory workup was notable for a leukocytosis of 24.7. UA showed trace leukocyte esterase with few urine bacteria. She was diagnosed with a complicated UTI with pyelonephritis and started on ceftriaxone. Patient was admitted for further care. Renal ultrasound showed no evidence of abscess. Patient's WBC count has been down-trending and has shown significant improvement. She has been afebrile during her hospital course. Her urine cultures were negative. Blood cultures have not shown growth to date. Patient was evaluated by [facility] and determined to have a stable . When seen today, patient denied any fever or chills. Denied any back or flank pain. Denied any chest pain or SOB. Denied any dysuria or samaria hematuria. Patient will be discharge home today with a 7 day course of augmentin. She is to follow-up with her PCP in the next 3-5 days and to follow- up with [facility] clinic on 05/17/19. Warned patient that if she experiences any fever, back pain, abdominal pain, dysuria, or samaria hematuria to immediately notify her PCP or go to the ER. - Time Spent with Patient Total time spent providing and/or coordinating discharge services: Time spent: Greater than 30 minutes - Discharge Medications Prescriptions: New Amoxicillin/Clavulanate [Augmentin] 875 mg PO BIDWM 7 Days #14 tablet Continued Pnv No.95/Ferrous Fum/Folic AC [ Caplet] 1 tab PO DAILY Home Medications: Pnv No.95/Ferrous Fum/Folic AC [ Caplet] 1 tab PO DAILY 05/06/19 [History] Amoxicillin/Clavulanate [Augmentin] 875 mg PO BIDWM 7 Days #14 tablet 05/15/19 [Rx] Allergies/Adverse Reactions: Allergy/AdvReac Type Severity Reaction Status Date / Time No Known Allergies Allergy Verified 05/13/19 15:00 Date of admission: 05/13/19 02:41 Primary care physician: PCP NONE Consults: 05/14/19 11:55 Consult to [facility] [CONS] Routine Consulting Provider: [facility] Isamar Reason for Consult: Complicated UTI. 15 wks gestation. Needs evaluation. Call Completed: Yes Discharging clinician: Josafat Sparks Anticipated date of discharge: 05/15/19 - Constitutional Vitals: Temp Pulse Resp BP Pulse Ox 98.4 F 63 21 97/60 98 05/15/19 07:12 05/15/19 07:12 05/15/19 07:12 05/15/19 07:12 05/15/19 07:12 Exam: GENERAL APPEARANCE: Well developed, well nourished, alert and cooperative, and appears to be in no acute distress. HEAD: normocephalic. EYES: vision is grossly intact. EARS: hearing grossly intact. NOSE: No nasal discharge. THROAT: Oral cavity and pharynx normal. No inflammation, swelling, exudate, or lesions. Teeth and gingiva in good general condition. NECK: Neck supple, non-tender without lymphadenopathy, masses or thyromegaly. CARDIAC: Normal S1 and S2. No S3, S4 or murmurs. Rhythm is regular. There is no peripheral edema, cyanosis or pallor. Extremities are warm and well perfused. Capillary refill is less than 2 seconds. No carotid bruits. LUNGS: Clear to auscultation and percussion without rales, rhonchi, wheezing or diminished breath sounds. ABDOMEN: Positive bowel sounds. Soft, nondistended, nontender. No guarding or rebound. No masses. Gravid. MUSKULOSKELETAL: Adequately aligned spine. ROM intact spine and extremities. No joint erythema or tenderness. Normal muscular development. Normal gait. BACK: Examination of the spine reveals normal gait and posture, no spinal deformity, symmetry of spinal muscles, without tenderness, decreased range of motion or muscular spasm. No CVA tenderness b/l. EXTREMITIES: No significant deformity or joint abnormality. No edema. Peripheral pulses intact. No varicosities. LOWER EXTREMITY: Examination of both feet reveals all toes to be normal in size and symmetry, normal range of motion, normal sensation with distal capillary filling of less than 2 seconds without tenderness, swelling, discoloration, nodules, weakness or deformity; examination of both ankles, knees, legs, and hips reveals normal range of motion, normal sensation without tenderness, swelling, discoloration, crepitus, weakness or deformity. SKIN: Skin normal color, texture and turgor with no lesions or eruptions. PSYCHIATRIC: The mental examination revealed the patient was oriented to person, place, and time. - Patient Status Disposition: Home, Self-Care Condition: Good Functional capacity at discharge: independent ambulation Overall status at discharge: patient is progressing back to baseline - Discharge Instructions Instructions: Urinary Tract Infection in Women (DC) Follow Up With: NONE,PCP [Primary Care Provider] - Diamond Ortiz CNM [Advanced Practice Nurse] - 05/17/19 1:30 pm - Diet and Activity Activity: increase activity as tolerated
== END 2019-05-15 11:36 | disposition home or self-care (01) | DRG 566 ==
LOC: 3BNU 22:12 → EMEROOARM 22:12 → 3BNU 05-13 02:37 → SUATTDRO 05-13 02:41 → 3BNU 05-13 03:05
PROVIDERS: ADMIT Internal Medicine; ATTEND Internal Medicine

== ENCOUNTER → 2019-06-12 18:28 | Observation (INO) ==
[2019-06-12 14:53] LABS: Bilirubin,Urine Negative (Negative); Blood,Urine Negative (Negative); Clarity,Urine Cloudy (Clear); Color,Urine Dark Yellow (Yellow); Glucose,Urine (UA) Normal (Normal); Ketones,Urine 15 mg/dL (Negative); Leukocyte Esterase,Urine Small (Negative); Nitrite,Urine Negative (Negative); Protein,Urine Trace mg/dL (Neg-Trace); Urobilinogen,Urine Normal (Normal)
[2019-06-12 14:56] LABS: Bacteria,Urine Few per hpf (None-Few); Hyaline Casts,Urine Few per lpf (None-Few); Squamous Epithelial Cell,Urine Many per lpf (None-Few); WBC,Urine 15-30 per hpf (0-3)
[2019-06-12 14:57] LABS: Basophils % 0.2 %; Eosinophils # 0.1 K/mcL (0.0-0.6); Eosinophils % 0.4 %; Hematocrit 38.7 % (35.3-44.9); Hemoglobin 13.4 g/dL (11.5-15.4); Immature Granulocytes % 0.6 % (0-4); Lymphocytes # 1.2 K/mcL (0.6-4.6); Lymphocytes % 9.6 %; Mean Corpuscular HGB Conc 34.6 g/dL (31.6-35.5); Mean Corpuscular Hemoglobin 29.2 pg (28.0-33.3); Mean Corpuscular Volume 84.3 fL (83.0-100.0); Mean Platelet Volume 10.5 fL (9.4-12.4); Monocytes # 0.5 K/mcL (0.0-1.3); Monocytes % 4.2 %; Neutrophils # 10.9 K/mcL (1.6-8.9); Platelet Count 237 K/mcL (140-400); Red Blood Count 4.59 M/mcL (3.82-4.97); Red Cell Distribution Width 13.7 % (11.5-14.5); White Blood Count 12.8 K/mcL (4.3-11.1)
[2019-06-12 15:02] LABS: Amphetamine Screen,Urine Negative ng/mL (Cutoff=1000); Barbiturate Screen,Urine Negative ng/mL (Cutoff=200); Benzodiazepines Screen,Urine Negative ng/mL (Cutoff=200); Cannabinoid Screen,Urine Negative ng/mL (Cutoff = 50); Cocaine Screen,Urine Negative ng/mL (Cutoff= 300); Opiate Screen,Urine Negative ng/mL (Cutoff=300); Phencyclidine Screen,Urine Negative ng/mL (Cutoff=25)
[2019-06-12 15:12] LABS: Alanine Aminotransferase 13 Units/L (7-52); Albumin 3.6 g/dL (3.5-5.7); Albumin/Globulin Ratio 1.1 (1.1-2.2); Alkaline Phosphatase 70 Units/L (34-104); Aspartate Amino Transferase 15 Units/L (13-39); BUN/Creatinine Ratio 10 (6-26); Bilirubin,Total 0.5 mg/dL (0.3-1.0); Blood Urea Nitrogen 6 mg/dL (6-20); Carbon Dioxide 23 mEq/L (23-29); Chloride 103 mEq/L (98-107); Globulin 3.3 g/dL (2.4-3.5); Glucose 85 mg/dL (70-105); Osmolality,Calculated 273 (280-300); Potassium 3.2 mEq/L (3.5-5.1); Sodium 133 mEq/L (136-145); Total Protein 6.9 g/dL (6.4-8.9); eGFR For African Americans > 60 (> 60); eGFR For Non-African Americans > 60 (> 60)
[~2019-06-12 18:28] MED LIST changes: -*HR* Nalbuphine 20 MG/ML AMPUL IVP PRN; -Famotidine 20 MG/2 ML VIAL IVP PRN; -Metoclopramide 10 MG/2 ML VIAL IVP PRN; -Naloxone 0.4 MG/ML INJ IVP PRN; +Ringers Solution, Lactated 1,000 ML IVC SCH; +Ringers Solution, Lactated 500 ML IVC ONE
--- NOTE | 2019-06-12 19:15 | OB/GYN Progress Note ---
Date of Encounter: 06/12/19 Time of Encounter: 19:14 - Assessment and Plan (1) 20 weeks gestation of Current Visit: Yes Status: Acute (2) Generalized weakness Current Visit: Yes Status: Acute Discussed with patient importance of regular food and and fluid intake. Patient states she does feel better after eating. Given oral potassium. Discussed intake of high potassium foods. Discussed with Dr. Ragsdale. Discharged home with labor and when to return to triage precautions. Patient verbalizes understanding. Patient also complains of sore throat but no other ill symptoms. Told if continues in the next couple days to make office appointment (3) Hypokalemia Current Visit: Yes Status: Acute Given 40 mEq with meal here in triage Subjective - Subjective Interval history: 20+5 weeks gestation presents to triage with complaints of not feeling well. Patient been evaluated in the ER the last couple days with complaints of overall malaise and not feeling well was found to have a low potassium. Patient states she just feels weak, has no appetite, does have nausea with occasional emesis. Has been taking Zofran every 6 hours. Very little food or liquid intake today. Antepartum ROS: movement normal, no loss of fluid, no vaginal bleeding, no contractions Objective - Vital Signs Vital Signs: Intake and Output 06/12/19 06/12/19 06/12/19 07:59 15:59 23:59 Other: Weight 78.9 kg Patient Weight 06/12/19 23:59 Weight 78.9 kg - Exam FHR: auscultation normal FHR comments: heart tones present Abdomen: Present: soft, gravid - Labs Labs: Abnormal lab results WBC 12.8 K/mcL (4.3-11.1) H 06/12/19 14:37 Neutrophils # 10.9 K/mcL (1.6-8.9) H 06/12/19 14:37 Sodium 133 mEq/L (136-145) L 06/12/19 14:37 Potassium 3.2 mEq/L (3.5-5.1) L 06/12/19 14:37 Calculated Osmolality 273 (280-300) L 06/12/19 14:37 Urine Clarity Cloudy (Clear) A 06/12/19 14:37 Ur Specific [place] 1.030 (1.010-1.025) H 06/12/19 14:37 Urine Ketones 15 mg/dL (Negative) H 06/12/19 14:37 Ur Leukocyte Esterase Small (Negative) H 06/12/19 14:37 Urine Microscopic RBC 5-15 per hpf (0-3) H 06/12/19 14:37 Urine Microscopic WBC 15-30 per hpf (0-3) H 06/12/19 14:37 Ur Squamous Epith Cells Many per lpf (None-Few) H 06/12/19 14:37 Ur Culture Indicated? YES (NO) A 06/12/19 14:37
== END | disposition home or self-care (01) ==
LOC: 1NENULAB
PROVIDERS: ADMIT Advanced Practice Midwife; ATTEND Advanced Practice Midwife

== ENCOUNTER 2019-07-14 16:07 | Observation (INO) | END 2019-07-14 17:35 | disposition home or self-care (01) | LOC: 1NENULAB | PROVIDERS: ADMIT Advanced Practice Midwife; ATTEND Advanced Practice Midwife ==

== ENCOUNTER 2019-09-04 23:59 | Observation (INO) ==
[2019-09-05 00:44] LABS: Bilirubin,Urine Negative (Negative); Blood,Urine Negative (Negative); Clarity,Urine Cloudy (Clear); Color,Urine Yellow (Yellow); Glucose,Urine (UA) Normal (Normal); Ketones,Urine Negative (Negative); Leukocyte Esterase,Urine Moderate (Negative); Nitrite,Urine Negative (Negative); Protein,Urine Negative (Neg-Trace); Specific Gravity,Urine 1.017 (1.010-1.025); Urobilinogen,Urine Normal (Normal)
[2019-09-05 00:49] LABS: Amphetamine Screen,Urine Negative ng/mL (Cutoff=1000); Bacteria,Urine Few per hpf (None-Few); Barbiturate Screen,Urine Negative ng/mL (Cutoff=200); Benzodiazepines Screen,Urine Negative ng/mL (Cutoff=200); Cannabinoid Screen,Urine Negative ng/mL (Cutoff = 50); Cocaine Screen,Urine Negative ng/mL (Cutoff= 300); Hyaline Casts,Urine None Seen per lpf (None-Few); Opiate Screen,Urine Negative ng/mL (Cutoff=300); Phencyclidine Screen,Urine Negative ng/mL (Cutoff=25); RBC,Urine 0-3 per hpf (0-3); Squamous Epithelial Cell,Urine Many per lpf (None-Few); WBC,Urine 30-50 per hpf (0-3)
[2019-09-05 01:19] LABS: Candida DNA Not Detected (Not Detect); Gardnerella DNA Not Detected (Not Detect); Trichomonas DNA Not Detected (Not Detect)
== END 2019-09-05 01:24 | disposition home or self-care (01) ==
LOC: 1NENULAB
PROVIDERS: ADMIT Advanced Practice Midwife; ATTEND Advanced Practice Midwife

== ENCOUNTER 2019-09-13 13:25 | Observation (INO) ==
[2019-09-13 14:26] LABS: Bilirubin,Urine Negative (Negative); Blood,Urine Negative (Negative); Clarity,Urine Cloudy (Clear); Color,Urine Yellow (Yellow); Glucose,Urine (UA) Normal (Normal); Ketones,Urine Trace mg/dL (Negative); Leukocyte Esterase,Urine Moderate (Negative); Nitrite,Urine Negative (Negative); PH,Urine 6.5 pH Units (5.0-8.0); Protein,Urine Trace mg/dL (Neg-Trace); Specific Gravity,Urine 1.021 (1.010-1.025); Urobilinogen,Urine Normal (Normal)
[2019-09-13 14:28] LABS: Bacteria,Urine Many per hpf (None-Few); Squamous Epithelial Cell,Urine Many per lpf (None-Few); WBC,Urine 50-100 per hpf (0-3)
[2019-09-13 14:30] LABS: RBC,Urine 0-3 per hpf (0-3)
[2019-09-13] MEDS ORDERED: Magnesium Oxide 400 MG TABLET PO ONE (15:30)
[2019-09-13 16:24] LABS: Candida DNA Not Detected (Not Detect); Gardnerella DNA Not Detected (Not Detect); Trichomonas DNA Not Detected (Not Detect)
[2019-09-13 16:38] LABS: Amphetamine Screen,Urine Negative ng/mL (Cutoff=1000); Barbiturate Screen,Urine Negative ng/mL (Cutoff=200); Benzodiazepines Screen,Urine Negative ng/mL (Cutoff=200); Cannabinoid Screen,Urine Negative ng/mL (Cutoff = 50); Cocaine Screen,Urine Negative ng/mL (Cutoff= 300); Opiate Screen,Urine Negative ng/mL (Cutoff=300); Phencyclidine Screen,Urine Negative ng/mL (Cutoff=25)
== END 2019-09-13 16:45 | disposition home or self-care (01) ==
LOC: 1NENULAB
PROVIDERS: ADMIT Advanced Practice Midwife; ATTEND Advanced Practice Midwife

== ENCOUNTER 2019-10-03 11:36 | Observation (INO) ==
[2019-10-03 12:24] LABS: Bilirubin,Urine Negative (Negative); Blood,Urine Negative (Negative); Clarity,Urine Cloudy (Clear); Color,Urine Yellow (Yellow); Glucose,Urine (UA) Normal (Normal); Ketones,Urine Negative (Negative); Leukocyte Esterase,Urine Moderate (Negative); Nitrite,Urine Negative (Negative); Protein,Urine Negative (Neg-Trace); Specific Gravity,Urine 1.012 (1.010-1.025); Urobilinogen,Urine Normal (Normal)
[2019-10-03 12:28] LABS: Bacteria,Urine None Seen per hpf (None-Few); Hyaline Casts,Urine None Seen per lpf (None-Few); RBC,Urine 0-3 per hpf (0-3); Squamous Epithelial Cell,Urine Many per lpf (None-Few); WBC,Urine 15-30 per hpf (0-3)
[2019-10-03 12:33] LABS: Amphetamine Screen,Urine Negative ng/mL (Cutoff=1000); Barbiturate Screen,Urine Negative ng/mL (Cutoff=200); Benzodiazepines Screen,Urine Negative ng/mL (Cutoff=200); Cannabinoid Screen,Urine Negative ng/mL (Cutoff = 50); Cocaine Screen,Urine Negative ng/mL (Cutoff= 300); Opiate Screen,Urine Negative ng/mL (Cutoff=300); Phencyclidine Screen,Urine Negative ng/mL (Cutoff=25)
== END 2019-10-03 15:16 | disposition home or self-care (01) ==
LOC: 1NENULAB
PROVIDERS: ADMIT Registered Nurse; ATTEND Registered Nurse

== ENCOUNTER 2019-10-03 18:46 | Observation (INO) ==
[2019-10-03] MEDS ORDERED: Naloxone 0.4 MG/ML INJ IVP PRN (19:20)
[2019-10-03] MEDS ORDERED: Ondansetron 4 MG/2 ML VIAL IVP PRN (19:20)
[2019-10-03] MEDS ORDERED: Metoclopramide 10 MG/2 ML VIAL IVP PRN (19:20)
[2019-10-03] MEDS ORDERED: Famotidine 20 MG/2 ML VIAL IVP PRN (19:20)
[2019-10-03] MEDS ORDERED: *HR* Nalbuphine 10 MG/ML AMPUL IVP PRN (19:20)
[2019-10-03] MEDS ORDERED: Ringers Solution, Lactated 1,000 ML IVC SCH (19:30)
[2019-10-03 19:36] LABS: Basophils % 0.3 %; Eosinophils # 0.1 K/mcL (0.0-0.6); Eosinophils % 0.7 %; Hematocrit 35.6 % (35.3-44.9); Immature Granulocytes % 0.6 % (0-4); Lymphocytes # 2.2 K/mcL (0.6-4.6); Lymphocytes % 14.9 %; Mean Corpuscular HGB Conc 36.5 g/dL (31.6-35.5); Mean Corpuscular Hemoglobin 30.7 pg (28.0-33.3); Mean Corpuscular Volume 84.2 fL (83.0-100.0); Mean Platelet Volume 10.9 fL (9.4-12.4); Monocytes # 0.7 K/mcL (0.0-1.3); Monocytes % 4.6 %; Neutrophils # 11.9 K/mcL (1.6-8.9); Platelet Count 241 K/mcL (140-400); Red Blood Count 4.23 M/mcL (3.82-4.97); Red Cell Distribution Width 13.4 % (11.5-14.5); Segmented Neutrophils % 78.9 %; White Blood Count 15.1 K/mcL (4.3-11.1)
[2019-10-04] MEDS ORDERED: Naloxone 0.4 MG/ML INJ IVP PRN (03:41)
[2019-10-04] MEDS ORDERED: *HR* Nalbuphine 10 MG/ML AMPUL IVP PRN (03:41)
[2019-10-04] MEDS ORDERED: Metoclopramide 10 MG/2 ML VIAL IVP PRN (03:41)
[2019-10-04] MEDS ORDERED: Famotidine 20 MG/2 ML VIAL IVP PRN (03:41)
[2019-10-04] MEDS ORDERED: Lidocaine 1% 20 ML MDV INFILT PRN (03:41)
[2019-10-04] MEDS ORDERED: Ringers Solution, Lactated 1,000 ML IVC SCH (03:45)
[2019-10-04 04:43] LABS: Basophils % 0.2 %; Eosinophils # 0.1 K/mcL (0.0-0.6); Eosinophils % 0.4 %; Hematocrit 36.5 % (35.3-44.9); Hemoglobin 13.2 g/dL (11.5-15.4); Immature Granulocytes % 0.7 % (0-4); Lymphocytes # 1.8 K/mcL (0.6-4.6); Lymphocytes % 10.7 %; Mean Corpuscular HGB Conc 36.2 g/dL (31.6-35.5); Mean Corpuscular Hemoglobin 30.5 pg (28.0-33.3); Mean Corpuscular Volume 84.3 fL (83.0-100.0); Mean Platelet Volume 11.4 fL (9.4-12.4); Monocytes # 0.5 K/mcL (0.0-1.3); Neutrophils # 13.9 K/mcL (1.6-8.9); Platelet Count 232 K/mcL (140-400); Red Blood Count 4.33 M/mcL (3.82-4.97); Red Cell Distribution Width 13.4 % (11.5-14.5); White Blood Count 16.4 K/mcL (4.3-11.1)
== END 2019-10-03 22:36 | disposition home or self-care (01) ==
LOC: 1NENULAB
PROVIDERS: ADMIT Obstetrics & Gynecology; ATTEND Obstetrics & Gynecology

== ENCOUNTER 2019-10-04 01:28 | Inpatient (IN) ==
[2019-10-04] MEDS ORDERED: Ringers Solution, Lactated 1,000 ML ONE (03:47)
[2019-10-04] MEDS ORDERED: Naloxone 0.4 MG/ML INJ IVP PRN (03:49)
[2019-10-04] MEDS ORDERED: Lidocaine 1% 20 ML MDV INFILT PRN (03:49)
[2019-10-04] MEDS ORDERED: Famotidine 20 MG/2 ML VIAL IVP PRN (03:49)
[2019-10-04] MEDS ORDERED: Metoclopramide 10 MG/2 ML VIAL IVP PRN (03:49)
[2019-10-04] MEDS ORDERED: Ondansetron 4 MG/2 ML VIAL IVP PRN (03:49)
[2019-10-04] MEDS ORDERED: *HR* Nalbuphine 10 MG/ML AMPUL IVP PRN (03:49)
[2019-10-04] MEDS ORDERED: Ringers Solution, Lactated 1,000 ML IVC SCH (04:00)
[2019-10-04 04:05] LABS: Basophils % 0.2 %; Eosinophils # 0.1 K/mcL (0.0-0.6); Eosinophils % 0.3 %; Hematocrit 36.6 % (35.3-44.9); Hemoglobin 12.7 g/dL (11.5-15.4); Immature Granulocytes % 0.6 % (0-4); Lymphocytes # 1.8 K/mcL (0.6-4.6); Lymphocytes % 11.1 %; Mean Corpuscular HGB Conc 34.7 g/dL (31.6-35.5); Mean Corpuscular Hemoglobin 30.2 pg (28.0-33.3); Mean Corpuscular Volume 86.9 fL (83.0-100.0); Mean Platelet Volume 10.9 fL (9.4-12.4); Monocytes # 0.5 K/mcL (0.0-1.3); Monocytes % 2.8 %; Neutrophils # 14.1 K/mcL (1.6-8.9); Platelet Count 233 K/mcL (140-400); Red Blood Count 4.21 M/mcL (3.82-4.97); Red Cell Distribution Width 13.4 % (11.5-14.5); White Blood Count 16.6 K/mcL (4.3-11.1)
[2019-10-04] MEDS ORDERED: Epidural Premix (fent/bupiv) 110 ML EP ONE (04:22)
[2019-10-04] MEDS ORDERED: Ropivacaine/PF 0.2% 20 ML VIAL ONE (04:23)
[2019-10-04] MEDS ORDERED: *HR* FentaNYL (PF) 100 MCG/2 ML VIAL ONE (04:23)
[2019-10-04 04:33] LABS: Platelet Estimate Normal (Normal)
[2019-10-04] MEDS ORDERED: EPHEDrine 50 MG/ML VIAL IVP PRN (04:46)
[2019-10-04] MEDS ORDERED: Epidural Premix (fent/bupiv) 110 ML EP SCH (05:00)
[2019-10-04] MEDS ORDERED: Oxytocin 20 units/ LR 1000 mL 20 UNIT/1,000 ML BAG IVC ONE ×2 (05:07→06:49)
[2019-10-04] MEDS ORDERED: Benzocaine/Menthol 56 GM AEROSOL SPRAY TP PRN (08:10)
[2019-10-04] MEDS ORDERED: Lanolin 7 G OINT...G. TP PRN (08:10)
[2019-10-04] MEDS ORDERED: Oxytocin 20 units/ LR 1000 mL 20 UNIT/1,000 ML BAG IVC SCH (08:10)
[2019-10-04] MEDS ORDERED: Acetaminophen 325 MG TABLET PO PRN (08:10)
[2019-10-04] MEDS: Ibuprofen 600 MG TABLET PO PRN (09:59)
[2019-10-04] MEDS: Prenatal Vit/FA 1 EACH TABLET PO SCH (10:00)
[2019-10-05 07:54] VITALS: BP 122/71
[2019-10-05] MEDS: Prenatal Vit/FA 1 EACH TABLET PO SCH (08:16)
[2019-10-05] MEDS: Ibuprofen 600 MG TABLET PO PRN (08:17)
== END 2019-10-05 10:58 | disposition home or self-care (01) | DRG 560 ==
LOC: 1NENULAB → OBSVTOIN 01:28 → 1NENULAB 03:31 → 1NENUOBS 08:00
PROVIDERS: ADMIT Registered Nurse; ATTEND Registered Nurse